=== PATIENT | female | born 1935 | race Caucasian/White ===

== ENCOUNTER 2016-06-01 22:30 | Emergency (ER) | payer BC, OTHER ==
[~2016-06-01] VITALS: Ht 157.5 cm; Wt 55.1 kg
[~2016-06-01 22:30] MED LIST: ACET325T96 PO; AMOX1TAB43 PO; ASPEC81 PO; ATOR-26 PO; FLV1 PO; LEVE500T PO; LEVO125T72 PO; MRLP17X PO; MULT-188 PO; PANT40TA PO; SERT100T PO; SNK PO; THM100 PO; TPRSR50 PO; TRAZ100T29 PO; XNX25X PO
[2016-06-01 22:40] VITALS: TEMP 37.2; Ht 157.5 cm; Wt 55.1 kg
[2016-06-01 22:45] VITALS: O2SAT 92
[2016-06-01] MEDS ORDERED: TPRSR/25 PO (23:08)
[2016-06-01] MEDS ORDERED: ASPI81TA28 PO (23:10)
--- NOTE | 2016-06-01 23:58 | EMERGENCY ROOM VISIT NOTE ---
History Report prepared by Piotr: Dena Marlow Under the Supervision of: Dr. Rosie Del Rio D.O. 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 The patient states that she was going into the bathroom and fell into her bathtub. She states she did not lose consciousness and was able to get up on her own. She states that she was able then to go back to bed. She states she called her family and told them about her fall. The patient states that she had 2 shots this evening around 5 pm because she states she has not slept for the last 2 days and wanted to get some sleep tonight. The patient's family states the patient has had alcohol withdrawal seizures with the last one occurring about 1 week ago. The patient denies having a seizure tonight but the family states that she could have had a seizure and just was unaware of it. The family states the patient drinks alcohol every day and woke up yesterday and drank a pint of whiskey. The patient states that she does have back pain that is worse with movement due to the fall. The family states the patient lives alone with caretakers that come to her house daily. The family states the patient was complaining of a headache prior to arriving at the ED tonight. They state the patient has had seizures and falls in the past resulting in broken hip, femur, shoulders, and elbows. They state that the patient suffers from depression, anxiety attacks hypertension, and macular degeneration. Source of History: patient, family Onset: few hours POULTRY TRIMMER Position: other (global) Timing: other (sudden) Associated Symptoms: + back pain, + headache, No LOC Review of Systems See HPI for pertinent positives & negatives. A total of 10 systems reviewed and were otherwise negative. 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 Social History Smoking Status: Former Smoker Alcohol Use: heavy Drug Use: none Marital Status: Housing Status: lives alone Current/Historical Medications Scheduled Alprazolam (Alprazolam), 0.25 MG PO BID Aspirin (Aspirin Ec), 81 MG PO DAILY Atorvastatin (Lipitor), 1 TAB PO DAILY Levothyroxine Sodium (Synthroid), 125 MCG PO QAM Metoprolol Succinate (Metoprolol Succinate ER), 25 MG PO BID Pantoprazole (Protonix), 40 MG PO DAILY Sertraline Hcl (Zoloft), 100 MG PO HS Trazodone Hcl (Trazodone), 150 MG PO HS Allergies Coded Allergies: No Known Allergies (Unverified , 06/01/16) Physical Exam Vital Signs Date Time Temp Pulse Resp B/P Pulse Ox O2 Delivery O2 Flow Rate FiO2 06/02/16 01:40 81 16 159/79 95 06/02/16 00:00 71 20 166/89 94 Room Air 06/01/16 22:47 68 06/01/16 22:45 92 Room Air 06/01/16 22:40 37.2 70 20 145/81 92 Room Air Physical Exam General:Smells of alcohol. HEENT: Head - Large contusion about the right eye. Pupils are equal, round, and reactive to light. Extraocular eye muscles are intact and sclera are anicteric. Ears - bilaterally patent canals with no evidence of hemotympanum. Nose - moist nasal mucosa without evidence of trauma or discharge. Mouth - moist buccal mucosa with no trauma to the teeth or signs of malocclusion. Neck: The neck is supple and there is no pain to palpation over the posterior cervical spine and no obvious step-offs or deformities. There is no JVD or tracheal deviation. Chest: There are no signs of deformities, contusions or abrasions to the chest wall. There is no obvious crepitus or paradoxical chest rise. Heart: Regular, rate, and rhythm. There is a normal S1 and S2 with no murmurs, clicks, or gallops appreciated. Lungs: Clear to auscultation bilaterally with no wheezes, rales, or rhonchi. Abdomen: Soft, completely nontender, nondistended, with good bowel sounds. There is no sign of trauma such as contusions, abrasions or penetrations. There are no palpable pulsatile masses or hepatosplenomegaly. There is no guarding, rigidity, or rebound noted. Pelvis: Stable to rock and compression. Extremities: Contusions to both knees, skin tear on right dorsal wrist. There are easily palpable peripheral pulses. Neuro: The patient is awake and alert and easily able to follow commands. Muscle strength is 5 out of 5 in all 4 extremities. Otherwise, neuro exam is unremarkable. Back: The entire thoracic, lumbar, and sacral spine were palpated. There are no obvious step-offs or deformities noted. There are no obvious signs of trauma such as contusions abrasions penetrations noted to the back. Medical Decision & Procedures ER Provider Diagnostic Interpretation: CT results as stated below per my review and radiologist interpretation: Preliminary Results Only---See Final Report for Complete Findings. CT HEAD: Comparison CT head 01/28/16 No acute intracranial abnormality No ICH, mass effect or edema, No skull fracture. Mild frontal and left occipital scalp swelling Cortical atrophy and white matter changes most consistent with chronic small vessel disease. Radiologist: Anthony graham MD Study ready at 0033 and initial results transmitted at 0050. Laboratory Results 06/01/16 23:59 06/01/16 23:59 Test 06/01/16 23:59 Red Blood Count 3.74 M/uL (4.2-5.4) Mean Corpuscular Volume 97.3 fL (80-100) Mean Corpuscular Hemoglobin 33.4 pg (25-34) Mean Corpuscular Hemoglobin Concent 34.3 g/dl (32-36) RDW Standard Deviation 47.7 fL (36.4-46.3) RDW Coefficient of Variation 13.4 % (11.5-14.5) Mean Platelet Volume 9.3 fL (7.4-10.4) Prothrombin Time 10.2 SECONDS (9.0-12.0) Prothromb Time International Ratio 1.0 (0.9-1.1) Activated Partial Thromboplast Time 26.2 SECONDS (21.0-31.0) Partial Thromboplastin Ratio 1.0 Anion Gap 12.0 mmol/L (3-11) Est Creatinine Clear Calc Drug Dose 32.3 ml/min Estimated GFR () 54.9 Estimated GFR (Non- 47.4 BUN/Creatinine Ratio 21.4 (10-20) Calcium Level 8.4 mg/dl (8.5-10.1) Total Bilirubin 0.2 mg/dl (0.2-1) Direct Bilirubin < 0.1 mg/dl (0-0.2) Aspartate Amino Transf (AST/SGOT) 36 U/L (15-37) Alanine Aminotransferase (ALT/SGPT) 31 U/L (12-78) Alkaline Phosphatase 94 U/L (45-117) Total Creatine Kinase 183 U/L (26-192) Creatine Kinase MB 8.4 ng/ml (0.5-3.6) Creatine Kinase MB Ratio 4.6 (0-3.0) Troponin I < 0.015 ng/ml (0-0.045) Total Protein 6.9 gm/dl (6.4-8.2) Albumin 3.5 gm/dl (3.4-5.0) Thyroid Stimulating Hormone (TSH) 0.238 uIu/ml (0.300-4.500) Ethyl Alcohol mg/dL 120.0 mg/dl (0-3) Laboratory results per my review. ECG Indication: other (fall) Rate (beats per minute): 65 Rhythm: normal sinus Findings: PAC, no acute ischemic change ED Course 2332: Past medical records reviewed. The patient was evaluated in room A11B. A complete history and physical exam was performed. Laboratory studies were drawn as above. The patient will go for CT scan of the head. 0120: I reevaluated the patient and she was hemodynamically stable. She is just very anxious to go home. I discussed findings and results with patient and family. She verbalized agreement of the treatment plan. The patient was discharged home. Medical Decision The patient is a 80 year old female who presents to the ED with fall. Differential diagnosis includes but is not limited to alcohol intoxication, alcohol withdrawal, closed head injury, skull fracture, intracranial trauma. Labs: ETOH 120 Stable H&H White count 12.4 BUN 24 Creatinine 1.1 Glucose 76 LFT normal TSH low at 0.23 Cardiac enzymes are negative Coagulation studies are normal. This is an 80-year-old female patient with a history of alcoholism who presents to the emergency department with her family after suffering a fall at home. At this time, the patient has no complaints of pain. However, the patient has contusions on the right side of her head and all about her knees. There is moderate erythema associated with these contusions and may indicate that the patient laid in that position for some time. She was able get herself up and called her family. I spent a great of time talking to the patient and the family about my concerns for her safety. The patient's family seems to understand the dangers associated with alcohol abuse in the elderly and the potential for falls, head injuries, and hip fractures. That the patient had [id number] care previously but other family members did not think that was necessary. I recommended reinstituting that plan again. I encouraged the patient to avoid such excessive alcohol use in the future and to move slowly with assistance to prevent falls. Impression Primary Impression: Closed head injury Additional Impressions: Alcohol intoxication Fall Scribe Attestation The scribe's documentation has been prepared under my direction and personally reviewed by me in its entirety. I confirm that the note above accurately reflects all work, treatment, procedures, and medical decision making performed by me. Departure Information Dispostion Home / Self-Care Referrals Thong Sahh III, M.D. (PCP) Forms HOME CARE DOCUMENTATION FORM, IMPORTANT VISIT INFORMATION Patient Instructions My [facility] Additional Instructions Avoid such excessive alcohol use Move slowly. Use assistance to avoid falls and trauma I believe someone should be in your home to help keep you safe Problem Qualifiers
[2016-06-02 00:12] LABS: HEMATOCRIT 36.4 % (37-47); MEAN CELL VOLUME 97.3 fL (80-100); MEAN CORPUSCULAR HEMOGLOBIN 33.4 pg (25-34); MEAN CORPUSCULAR HGB CONC 34.3 g/dl (32-36); MEAN PLATELET VOLUME 9.3 fL (7.4-10.4); PLATELET COUNT 240 K/uL (130-400); RED BLOOD COUNT 3.74 M/uL (4.2-5.4)
[2016-06-02 00:36] LABS: PROTHROMBIN TIME (PATIENT) 10.2 SECONDS (9.0-12.0)
[2016-06-02 00:39] LABS: ALKALINE PHOSPHATASE 94 U/L (45-117); ALT/SGPT 31 U/L (12-78); AST/SGOT 36 U/L (15-37); BLOOD UREA NITROGEN 24 mg/dl (7-18); BUN/CREATININE RATIO 21.4 (10-20); CALCIUM 8.4 mg/dl (8.5-10.1); CARBON DIOXIDE 22 mmol/L (21-32); CHLORIDE 107 mmol/L (98-107); GLUCOSE 76 mg/dl (70-99); POTASSIUM 3.8 mmol/L (3.5-5.1); SODIUM 141 mmol/L (136-145)
[2016-06-02 00:50] LABS: CKMB/CK RATIO 4.6 (0-3.0); THYROID STIMULATING HORMONE 0.238 uIu/ml (0.300-4.500)
[2016-06-02 01:40] VITALS: BP 159/79; PULSE 81; O2SAT 95
--- NOTE | 2016-06-02 07:12 | DIAGNOSTIC IMAGING REPORT ---
HEAD CT NONCONTRAST CT DOSE: 614.27 mGy.cm HISTORY: Fall. Head injury. eval for head tauma TECHNIQUE: Multiaxial CT images of the head were performed without the use of intravenous contrast. Automated exposure control was utilized for this study. Comparison: Head CT 01/28/2016. Findings: The paranasal sinuses and mastoid air cells are clear. The calvarium and skull base are intact. There is no mass, hematoma, midline shift, acute infarct. White matter hypodensity is nonspecific but suggestive of moderate microvascular ischemic change. The ventricles and sulci demonstrate mild age-related involutional changes. Mild left occipital and right frontal scalp swelling. Impression: No acute intracranial abnormality. Atrophy and microvascular ischemic changes. Mild scalp swelling Electronically signed by: Vince Steen M.D. 06/02/2016 7:11 AM Dictated Date/Time: 06/02/2016 7:08 AM
== END 2016-06-02 01:41 | disposition home or self-care (01) ==
LOC: EDBD 22:30 → C.EDA 22:31
DX: S09.90XA Unspecified injury of head, initial encounter (principal); W19.XXXA Unspecified fall, initial encounter; Y92.012 Bathroom of single-family (private) house as the place of occurrence of the external cause; S80.01XA Contusion of right knee, initial encounter; S80.02XA Contusion of left knee, initial encounter; F10.129 Alcohol abuse with intoxication, unspecified; F41.9 Anxiety disorder, unspecified; I25.10 Atherosclerotic heart disease of native coronary artery without angina pectoris; N18.3 Chronic kidney disease, stage 3 (moderate); F32.9 Major depressive disorder, single episode, unspecified; I12.9 Hypertensive chronic kidney disease with stage 1 through stage 4 chronic kidney disease, or unspecified chronic kidney disease; M19.90 Unspecified osteoarthritis, unspecified site; E78.5 Hyperlipidemia, unspecified; H35.30 Unspecified macular degeneration; E03.9 Hypothyroidism, unspecified; Z87.891 Personal history of nicotine dependence; Z79.82 Long term (current) use of aspirin; Z79.899 Other long term (current) drug therapy

== ENCOUNTER 2016-06-30 07:47 | Emergency (ER) | payer BC ==
[~2016-06-30] VITALS: Ht 157.5 cm; Wt 51.5 kg
[~2016-06-30 07:47] MED LIST changes: -ACET325T96 PO; -AMOX1TAB43 PO; -ASPEC81 PO; +ASPI81TA28 PO; -FLV1 PO; -LEVE500T PO; -MRLP17X PO; -MULT-188 PO; -SNK PO; -THM100 PO; +TPRSR/25 PO; -TPRSR50 PO
[2016-06-30 07:50] VITALS: TEMP 36.7; Ht 157.5 cm; Wt 51.5 kg
[2016-06-30] MEDS ORDERED: OXYCODONE/ACETAMINOPHEN 5-325 TAB PO STA (07:55)
[2016-06-30] MEDS ORDERED: CALC1TAB3 PO (08:33)
[2016-06-30] MEDS ORDERED: ATOR-26 PO (08:33)
[2016-06-30] MEDS ORDERED: THIA50TA3 PO (08:33)
[2016-06-30] MEDS ORDERED: MULT-506 PO (08:33)
[2016-06-30] MEDS ORDERED: SENN-65 PO (08:33)
--- NOTE | 2016-06-30 08:39 | DIAGNOSTIC IMAGING REPORT ---
CT LUMBAR SPINE WITHOUT CT DOSE: 254.67 mGycm CLINICAL HISTORY: Low back pain status post trauma. Seizure. TECHNIQUE: Helical images were acquired in transverse plane. Reformatted sagittal and coronal images were reviewed. CONTRAST: No contrast was administered COMPARISON STUDY: None. FINDINGS: There is a T12 burst fracture. There is is 4 mm of retropulsion. The vertebral body has lost approximately 65% of its height. This fracture is felt to be acute. There is an L1 burst fracture demonstrating 4 mm of retropulsion. The vertebral body is lost approximately 65% of its height. This fracture may be chronic. L1-2 level: There is a circumferential disc bulge. There is mild spinal canal narrowing. There is no significant foraminal stenosis L2-3 level: There is a circumferential disc bulge with mild spinal stenosis. There is no significant foraminal narrowing L3-4 level: There is a circumferential disc bulge with mild spinal stenosis. There is no significant foraminal narrowing L4-5 level: There is a circumferential disc bulge with mild spinal stenosis. There is no significant foraminal narrowing L5-S1 level: There is a circumferential disc bulge. There is no significant spinal or foraminal stenosis. Healing insufficiency fractures of the right sacral horacio are visualized. IMPRESSION: 1. Acute T12 burst fracture with 4 mm of retropulsion 2. Chronic L1 burst fracture with 4 mm of retropulsion 3. Healing right sacral insufficiency fractures 4. Mild multilevel degenerative changes with multilevel disc bulges and mild multilevel spinal stenosis Electronically signed by: Davion Murillo M.D. 06/30/2016 8:38 AM Dictated Date/Time: 06/30/2016 8:33 AM
[2016-06-30] MEDS ORDERED: OXYC-57 PO (09:33)
--- NOTE | 2016-06-30 09:38 | EMERGENCY ROOM VISIT NOTE ---
History Report prepared by Piotr: Dez Brooks Under the Supervision of: Dr. Tico Hobson D.O. First contact with patient: 07:52 Chief Complaint: BACK PAIN Stated Complaint: BACK PAIN History of Present Illness The patient is an 80 year old female who presents to the Emergency Room with complaints of worsening back pain that started over the past few weeks. The patient says that she had a seizure a while ago and fell, hurting her back. She is not sure how long ago the seizure occurred, but she says that the pain has been worsening recently. The patient states that her whole back hurts, but her lower back hurts the most. She says that the pain is so bad that she is unable to sit up. Movement worsens the pain. The patient notes that she has seen other doctors for the pain, but they would not give her any medications for the pain because she did not "break anything". Source of History: patient Onset: Over past few weeks Position: back Timing: worsening Modifying Factors (Worsening): movement Note: Associated symptoms: Seizure a few weeks ago and fell. Unable to sit up due to pain. Review of Systems See HPI for pertinent positives & negatives. A total of 10 systems reviewed and were otherwise negative. 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 Social History Smoking Status: Former Smoker Alcohol Use: heavy Drug Use: none Marital Status: Housing Status: lives alone Current/Historical Medications Scheduled Aspirin (Aspirin Ec), 81 MG PO DAILY Atorvastatin (Lipitor), 80 MG PO DAILY Calcium Carbonate-Vitamin D (Super Calcium 600+D 400), 1 TAB PO BID Levothyroxine Sodium (Synthroid), 125 MCG PO QAM Metoprolol Succinate (Metoprolol Succinate ER), 25 MG PO BID Multivitamin (Multivitamin), 1 TAB PO Q2D Pantoprazole (Protonix), 40 MG PO DAILY Senna/Docusate Sod (Senokot S), 1 TAB PO BID Sertraline Hcl (Zoloft), 100 MG PO HS Thiamine Hcl (Vitamin B-1), 50 MG PO DAILY Trazodone Hcl (Trazodone), 150 MG PO HS Scheduled PRN Oxycodone/Acetaminophen 5MG/325MG (Percocet 5MG/325MG), 1 TAB PO Q6H PRN for Pain Allergies Coded Allergies: No Known Allergies (Unverified , 06/30/16) Physical Exam Vital Signs Date Time Temp Pulse Resp B/P Pulse Ox O2 Delivery O2 Flow Rate FiO2 06/30/16 10:11 65 16 153/73 94 06/30/16 09:28 61 18 153/86 96 Room Air 06/30/16 07:50 36.7 65 18 151/88 95 Room Air Physical Exam CONSTITUTIONAL/VITAL SIGNS: Reviewed / noted above. GENERAL: Non-toxic in appearance. INTEGUMENTARY: Warm, dry, and [place]. HEAD: Normocephalic. EYES: without scleral icterus or trauma. ENT/OROPHARYNX: clear and moist. LYMPHADENOPATHY/NECK: Is supple without lymphadenopathy or meningismus. RESPIRATORY: Lungs clear and equal. CARDIOVASCULAR: Regular rate and rhythm. GI/ABDOMEN: Soft and nontender. No organomegaly or pulsatile mass. No rebound or guarding. Normal bowel sounds. EXTREMITIES: Warm and well perfused. BACK: Tenderness to palpation of the lumbar spine. NEUROLOGICAL: Intact without focal deficits. PSYCHIATRIC: normal affect. MUSCULOSKELETAL: Normally developed with good muscle tone. Medical Decision & Procedures ER Provider Diagnostic Interpretation: CT results as stated below per my review and radiologist interpretation: CT LUMBAR SPINE WITHOUT CT DOSE: 254.67 mGycm CLINICAL HISTORY: Low back pain status post trauma. Seizure. TECHNIQUE: Helical images were acquired in transverse plane. Reformatted sagittal and coronal images were reviewed. CONTRAST: No contrast was administered COMPARISON STUDY: None. FINDINGS: There is a T12 burst fracture. There is is 4 mm of retropulsion. The vertebral body has lost approximately 65% of its height. This fracture is felt to be acute. There is an L1 burst fracture demonstrating 4 mm of retropulsion. The vertebral body is lost approximately 65% of its height. This fracture may be chronic. L1-2 level: There is a circumferential disc bulge. There is mild spinal canal narrowing. There is no significant foraminal stenosis L2-3 level: There is a circumferential disc bulge with mild spinal stenosis. There is no significant foraminal narrowing L3-4 level: There is a circumferential disc bulge with mild spinal stenosis. There is no significant foraminal narrowing L4-5 level: There is a circumferential disc bulge with mild spinal stenosis. There is no significant foraminal narrowing L5-S1 level: There is a circumferential disc bulge. There is no significant spinal or foraminal stenosis. Healing insufficiency fractures of the right sacral horacio are visualized. IMPRESSION: 1. Acute T12 burst fracture with 4 mm of retropulsion 2. Chronic L1 burst fracture with 4 mm of retropulsion 3. Healing right sacral insufficiency fractures 4. Mild multilevel degenerative changes with multilevel disc bulges and mild multilevel spinal stenosis Electronically signed by: Davion Murillo M.D. 06/30/2016 8:38 AM Dictated Date/Time: 06/30/2016 8:33 AM Medications Administered Medications (Trade) Dose Ordered Sig/Evonne Route Start Time Stop Time Status Last Admin Dose Admin Oxycodone/ Acetaminophen (Percocet 5-325mg Tab) 1 tab NOW STAT PO 06/30/16 07:55 06/30/16 07:57 DC 06/30/16 08:14 1 TAB ED Course 0754: Previous medical records were reviewed. The patient was evaluated in room A10. A complete history and physical examination was performed. 0755: Ordered Percocet 5-325mg Tab 1 tab PO. 0955: On reevaluation, the patient is resting comfortably. I discussed the results and findings with the patient. She verbalized agreement of the treatment plan. She will be discharged home. Medical Decision Differential considered includes cauda equina syndrome, conus medullaris, spinal cord compression syndrome, peripheral nerve compression, fractures or subluxations, intra-abdominal pathology such as abdominal aortic aneurysm or kidney stones, muscle strain, transverse myelitis, spinal cord injury. This is an 80-year-old female who presents to the ED with a chief complaint of back pain. The pain is in the lower back. She states that she fell about a month ago. She has had the pain since then. It seems to slightly worsened recently. The patient has no other specific complaints. Denies any perianal anesthesia or trouble with her bowels or bladder. She denies any weakness or numbness in the lower extremities. The patient has some tenderness on exam of the lumbar region. CT scan of the spine reveals an acute T12 burst fracture with 4 mm retropulsion. There is also a chronic L1 burst fracture with 4 mm of retropulsion. The patient was told the results of the test per she is given a Percocet by mouth. This helped her pain. She was discharged on Percocet. She was given a referral to orthopedics. She will use her walker. Impression Primary Impression: T12 burst fracture Scribe Attestation The scribe's documentation has been prepared under my direction and personally reviewed by me in its entirety. I confirm that the note above accurately reflects all work, treatment, procedures, and medical decision making performed by me. Departure Information Dispostion Home / Self-Care Prescriptions Oxycodone/Acetaminophen 5MG/325MG (PERCOCET 5MG/325MG) Tab 1 TAB PO Q6H Y for Pain, #20 TAB Prov: Tico Hobson D.O. 06/30/16 Referrals Thong Shah III, M.D. (PCP) Patient Instructions ED Fx Comp Vertebral, My [facility] Additional Instructions Percocet as prescribed. No driving within 6 hours of use. Do not take additional Tylenol while taking Percocet. Follow-up with your doctor for further care and evaluation in 1-2 days. Return to the emergency department for worsening or new symptoms or any concerns. You have been examined and treated today on an emergency basis only. This is not a substitute for, or an effort to provide, complete comprehensive medical care. It is impossible to recognize and treat all injuries or illnesses in a single emergency department visit. It is therefore important that you follow up closely with your doctor. Call as soon as possible for an appointment.
[2016-06-30 10:11] VITALS: BP 153/73; PULSE 65; O2SAT 94
== END 2016-06-30 10:38 | disposition home or self-care (01) ==
LOC: EDBD 07:47 → C.EDA 07:48
DX: S22.081A Stable burst fracture of T11-T12 vertebra, initial encounter for closed fracture (principal); I25.10 Atherosclerotic heart disease of native coronary artery without angina pectoris; N18.3 Chronic kidney disease, stage 3 (moderate); I12.9 Hypertensive chronic kidney disease with stage 1 through stage 4 chronic kidney disease, or unspecified chronic kidney disease; E78.5 Hyperlipidemia, unspecified; E03.8 Other specified hypothyroidism; F41.9 Anxiety disorder, unspecified; F32.9 Major depressive disorder, single episode, unspecified; Z79.82 Long term (current) use of aspirin; Z79.899 Other long term (current) drug therapy; Z86.018 Personal history of other benign neoplasm; Z87.828 Personal history of other (healed) physical injury and trauma; Z87.891 Personal history of nicotine dependence; Z95.5 Presence of coronary angioplasty implant and graft; W19.XXXA Unspecified fall, initial encounter

== ENCOUNTER 2016-09-30 13:19 | Emergency (ER) | payer BC ==
[~2016-09-30] VITALS: Ht 157.5 cm; Wt 53.5 kg
[~2016-09-30 13:19] MED LIST changes: +CALC1TAB3 PO; +MULT-506 PO; +OXYC-57 PO; +SENN-65 PO; +THIA50TA3 PO; -XNX25X PO
[2016-09-30 13:26] VITALS: TEMP 36.7; Ht 157.5 cm; Wt 53.5 kg
--- NOTE | 2016-09-30 13:58 | EMERGENCY ROOM VISIT NOTE ---
History Report prepared by Piotr: Sachin Hale Under the Supervision of: Dr. Aron Christianson M.D. First contact with patient: 13:31 Chief Complaint: FALL Stated Complaint: FALL History of Present Illness The patient is an 80 year old female who presents to the Emergency Room with complaints of a sudden fall occurring this morning. The patient states that she was drinking 4-5 shots of vodka this morning, and she fell. The patient states that she does not remember falling or hitting her head. The caregivers went to the store, and while they were out she drank. The patient states that she does not drink alcohol very regularly, and she is not currently in any pain. Source of History: patient Onset: this morning Position: other (global) Quality: other (fall) Timing: other (sudden) Review of Systems All systems have been listed, reviewed, and are negative other than those previously mentioned. Please see Additional Medical History Sheet. 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 Social History Smoking Status: Former Smoker Alcohol Use: heavy Drug Use: none Marital Status: Housing Status: lives alone Current/Historical Medications Scheduled Aspirin (Aspirin Ec), 81 MG PO DAILY Atorvastatin (Lipitor), 80 MG PO DAILY B-Complex Vitamins (Vitamin B Complex), 1 TAB PO DAILY Calcium Carbonate-Vitamin D (Super Calcium 600+D 400), 1 TAB PO BID Levothyroxine Sodium (Synthroid), 125 MCG PO QAM Metoprolol Succinate (Metoprolol Succinate ER), 25 MG PO BID Multivitamin (Multivitamin), 1 TAB PO Q2D Pantoprazole (Protonix), 40 MG PO DAILY Sertraline Hcl (Zoloft), 100 MG PO HS Trazodone Hcl (Trazodone), 150 MG PO HS Allergies Coded Allergies: No Known Allergies (Unverified , 06/30/16) Physical Exam Vital Signs Date Time Temp Pulse Resp B/P (MAP) Pulse Ox O2 Delivery O2 Flow Rate FiO2 09/30/16 16:43 68 18 132/76 95 Room Air 09/30/16 15:00 72 18 127/71 95 Room Air 09/30/16 14:05 95 Room Air 09/30/16 13:30 74 09/30/16 13:26 36.7 85 22 110/59 95 Room Air Physical Exam GENERAL: Appears intoxicated. Alcohol is on her breath. Responds to most questions but appears somewhat confused. Patient does not appear toxic. Patient is adequately hydrated and well-nourished. SKIN: No erythema, pallor, cyanosis or rash HEENT: Lump on the right temporal area. Bruise on the right frontal forehead. No lara sign or raccoon sign. Normal head, pupils equal, reactive to light and accommodation. Ears normal. No hemotympanum.. Oral cavity and posterior pharynx appear normal. Neck: Supple and non-tender. Without adenopathy, no neck vein distention. LUNGS: Clear to auscultation. No wheezes, no rales, no rhonchi. HEART: No murmurs. No gallops. No rubs ABDOMEN: No masses, no rebound, no hepatomegaly or splenomegaly. EXTREMITIES: 8 cm skin tear over the dorsum of the right elbow. Old bruises on both arms especially the right upper shoulder as well as the back of the right shoulder. Full range of motion in the right shoulder. Legs do not reveal significant bruising or signs of trauma. No pedal or pretibial edema. No calf or thigh tenderness. NEUROLOGIC: Cranial nerves II-XII within normal limits. No gross motor sensory function deficits. Medical Decision & Procedures ER Provider Diagnostic Interpretation: CT results are interpretations by the radiologist and per my review. HEAD WITHOUT CONTRAST (CT) CLINICAL HISTORY: 80 years-old Female presenting with fall hit right side. TECHNIQUE: Multidetector CT imaging of the head was performed without the use of intravenous contrast. IV contrast: None. A dose lowering technique was used consistent with the principles of ALARA (as low as reasonably achievable). COMPARISON: 06/02/2016. CT DOSE (mGy.cm): The estimated cumulative dose is 1119.46 mGy.cm. FINDINGS: Heavy Cleaner topogram: Unremarkable. Image quality is degraded by motion and beam hardening artifact. This somewhat limits diagnostic sensitivity of the exam. Ventricular and sulcal prominence proportional to diffuse parenchymal atrophy, likely age-related. Periventricular white matter hypoattenuation unchanged from prior, nonspecific but likely chronic small vessel ischemic change. No mass effect or midline shift. No hemorrhage or acute territorial infarct. No extra-axial fluid collection. Paranasal sinuses and mastoid air cells clear. Calvarium intact. IMPRESSION: 1. Allowing for limited image quality, no acute intracranial pathology. Electronically signed by: Sidney Sanders M.D. 09/30/2016 2:34 PM Dictated Date/Time: 09/30/2016 2:29 PM Laboratory Results 09/30/16 14:44 09/30/16 14:44 Test 09/30/16 14:44 Red Blood Count 3.37 M/uL (4.2-5.4) Mean Corpuscular Volume 103.3 fL (80-100) Mean Corpuscular Hemoglobin 32.9 pg (25-34) Mean Corpuscular Hemoglobin Concent 31.9 g/dl (32-36) RDW Standard Deviation 56.4 fL (36.4-46.3) RDW Coefficient of Variation 15.0 % (11.5-14.5) Mean Platelet Volume 9.1 fL (7.4-10.4) Prothrombin Time 10.1 SECONDS (9.0-12.0) Prothromb Time International Ratio 0.9 (0.9-1.1) Activated Partial Thromboplast Time 25.4 SECONDS (21.0-31.0) Partial Thromboplastin Ratio 1.0 Anion Gap 13.0 mmol/L (3-11) Est Creatinine Clear Calc Drug Dose 25.4 ml/min Estimated GFR () 41.0 Estimated GFR (Non- 35.4 BUN/Creatinine Ratio 22.6 (10-20) Calcium Level 8.9 mg/dl (8.5-10.1) Total Bilirubin 0.3 mg/dl (0.2-1) Aspartate Amino Transf (AST/SGOT) 214 U/L (15-37) Alanine Aminotransferase (ALT/SGPT) 81 U/L (12-78) Alkaline Phosphatase 118 U/L (45-117) Total Protein 6.3 gm/dl (6.4-8.2) Albumin 3.0 gm/dl (3.4-5.0) Globulin 3.3 gm/dl (2.5-4.0) Albumin/Globulin Ratio 0.9 (0.9-2) Ethyl Alcohol mg/dL 232.0 mg/dl (0-3) Laboratory results as stated above per my review. ECG Indication: other (fall) Rate (beats per minute): 63 Rhythm: sinus rhythm Findings: no acute ischemic change, prolonged QT, no ectopy ED Course 1331: Past medical records reviewed. The patient was evaluated in room C4. A complete history and physical examination was performed. 1550: I revaluated the patient, and she was resting comfortably. 1645: Upon reevaluation, the patient appeared to have improvement of her symptoms, and her wound was steri stripped closed. She declined an x-ray of her shoulder. I discussed today's findings with her, and I told her not to drink alcohol. She verbalized agreement of the treatment plan. She will be discharged home. Medical Decision Nurses notes reviewed. Medical history sheet reviewed. Differential diagnosis includes but is not limited to: closed head injury, alcohol intoxication, multiple bruises, shoulder fracture, dislocation, metabolic disorder. The patient is here after a fall where she struck the right side of her head. She also struck her right arm resulting in a large skin tear. Multiple imaging , labs and EKG were performed. Please see above. The patient's alcohol level was 232. CT scan does not reveal hemorrhage or significant injury in her head. The patient was strongly encouraged to avoid alcohol. I ordered an x-ray of her right shoulder with the patient refused. It is unlikely that she has a fracture or dislocation of the shoulder because she has good range of motion. She does have some bruising over that shoulder much of it which looks old. Medication Reconcilliation Current Medication List: was personally reviewed by me Blood Pressure Screening Patient's blood pressure: Normal blood pressure Impression Primary Impression: Fall Additional Impressions: Closed head injury Skin tear Multiple contusions Alcohol intoxication Hypokalemia Scribe Attestation The scribe's documentation has been prepared under my direction and personally reviewed by me in its entirety. I confirm that the note above accurately reflects all work, treatment, procedures, and medical decision making performed by me. Departure Information Dispostion Home / Self-Care Referrals Thong Shah III, M.D. (PCP) Forms HOME CARE DOCUMENTATION FORM, IMPORTANT VISIT INFORMATION Patient Instructions My [facility] Additional Instructions Leave the Steri-Strips on your arm in place for at least 10 days or until they fall off by themself. NO ALCOHOL Continue all of your current medications as prescribed. Follow-up with your family physician within the next 2 weeks. Problem Qualifiers
[2016-09-30 14:05] VITALS: O2SAT 95
[2016-09-30] MEDS ORDERED: B-COTAB18 PO (14:12)
--- NOTE | 2016-09-30 14:35 | DIAGNOSTIC IMAGING REPORT ---
HEAD WITHOUT CONTRAST (CT) CLINICAL HISTORY: 80 years-old Female presenting with fall hit right side. TECHNIQUE: Multidetector CT imaging of the head was performed without the use of intravenous contrast. IV contrast: None. A dose lowering technique was used consistent with the principles of ALARA (as low as reasonably achievable). COMPARISON: 06/02/2016. CT DOSE (mGy.cm): The estimated cumulative dose is 1119.46 mGy.cm. FINDINGS: American Studies Professor topogram: Unremarkable. Image quality is degraded by motion and beam hardening artifact. This somewhat limits diagnostic sensitivity of the exam. Ventricular and sulcal prominence proportional to diffuse parenchymal atrophy, likely age-related. Periventricular white matter hypoattenuation unchanged from prior, nonspecific but likely chronic small vessel ischemic change. No mass effect or midline shift. No hemorrhage or acute territorial infarct. No extra-axial fluid collection. Paranasal sinuses and mastoid air cells clear. Calvarium intact. IMPRESSION: 1. Allowing for limited image quality, no acute intracranial pathology. Electronically signed by: Sidney Sanders M.D. 09/30/2016 2:34 PM Dictated Date/Time: 09/30/2016 2:29 PM
[2016-09-30 15:02] LABS: HEMATOCRIT 34.8 % (37-47); MEAN CELL VOLUME 103.3 fL (80-100); MEAN CORPUSCULAR HEMOGLOBIN 32.9 pg (25-34); MEAN CORPUSCULAR HGB CONC 31.9 g/dl (32-36); MEAN PLATELET VOLUME 9.1 fL (7.4-10.4); PLATELET COUNT 286 K/uL (130-400); RED BLOOD COUNT 3.37 M/uL (4.2-5.4); WHITE BLOOD COUNT 11.67 K/uL (4.8-10.8)
[2016-09-30 15:12] LABS: INR 0.9 (0.9-1.1); PROTHROMBIN TIME (PATIENT) 10.1 SECONDS (9.0-12.0)
[2016-09-30 15:20] LABS: BUN/CREATININE RATIO 22.6 (10-20); CALCIUM 8.9 mg/dl (8.5-10.1); CREATININE 1.4 mg/dl (0.60-1.20); POTASSIUM 3.3 mmol/L (3.5-5.1)
[2016-09-30 15:23] LABS: ALB/GLOB RATIO 0.9 (0.9-2)
[2016-09-30 16:43] VITALS: BP 132/76; PULSE 68; O2SAT 95
== END 2016-09-30 16:46 | disposition home or self-care (01) ==
LOC: EDBD 13:19 → C.EDC 13:20
DX: S09.90XA Unspecified injury of head, initial encounter (principal); S00.83XA Contusion of other part of head, initial encounter; T14.8 Other injury of unspecified body region; F10.129 Alcohol abuse with intoxication, unspecified; E87.6 Hypokalemia; I25.10 Atherosclerotic heart disease of native coronary artery without angina pectoris; N18.3 Chronic kidney disease, stage 3 (moderate); I12.9 Hypertensive chronic kidney disease with stage 1 through stage 4 chronic kidney disease, or unspecified chronic kidney disease; E78.5 Hyperlipidemia, unspecified; M19.90 Unspecified osteoarthritis, unspecified site; F41.9 Anxiety disorder, unspecified; Z79.82 Long term (current) use of aspirin; Z79.899 Other long term (current) drug therapy; Z86.018 Personal history of other benign neoplasm; Z87.891 Personal history of nicotine dependence; W19.XXXA Unspecified fall, initial encounter

== ENCOUNTER 2019-10-12 07:10 | Inpatient (IN) ==
--- OUTSIDE RECORDS SUMMARY | 2019-10-12 07:12 | External Medical Summary | Continuity of Care Document ---
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 Quantity: 30 Refills: 4 Guaifenesin-Codeine 100-10 MG/5ML SYRP; TAKE 1 TEASPOONFUL EVERY 4 HOURS NEEDED. Refills: 0 Tylenol 500 MG CAPS; TAKE 2 CAPSULES 2 TIMES DAILY. Refills: 0 Lisinopril 10 MG Oral Tablet; TAKE 1 TABLET BY MOUTH EVERY D AY Quantity: 90 Refills: 3 Sertraline HCl - 100 MG Oral Tablet; TAKE (1) TABLET DAILY. Refills: 0 Trazamine 50 MG MISC; (1) AT BEDTIME WITH 150MG- TOTAL 200MG AT BEDTIME Refills: 0 ALPRAZolam 0.5 MG Oral Tablet; TAKE 1 TABLET 3 TIMES DAILY A S NEEDED. Quantity: 90 Refills: 0 Levothyroxine Sodium 175 MCG Oral Tablet; TAKE 1 TABLET DANY Y. Quantity: 30 Refills: 5 traMADol HCl - 50 MG Oral Tablet; TAKE 1 TABLET EVERY 4 TO 6 HOURS NEEDED FOR PAIN. Quantity: 90 Refills: 1 PreserVision AREDS 2 Oral Capsule; Take 1 capsule twice dany y Refills: 0 Desyrel 150 MG TABS; TAKE 1 TABLET AT BEDTIME. Refills: 0 Multi-Vitamins Oral Tablet; TAKE 1 TABLET DAILY. Refills: 0 Symbicort 160-4.5 MCG/ACT Inhalation Aer osol; INHALE 2 PUFFS TWICE DAILY. RINSE MOUTH AFTER USE. MORGAN Jimenez Start: 21-Aug-2014 Quantity: 1 10.2 GM Inhaler Refills: 5 Procedures History of Tubal Ligation Status: Comple arian Immunizations Immunizations not documented Family History Mother Family history of myocardial infarction (V17.3) (Z82.49) Sta tus: Active Father Family history of myocardial infarction (V17.3) (Z82.49) Sta tus: Active Brother Family history of myocardial infarction (V17.3) (Z82.49) Sta tus: Active Social History - Smoking Status Ex-smoker Plan of Treatment Planned Observations Planned Goals not documented Results No Known Results Results not documented Encounters Appointment; Salma Jimenez PA-C 07-Sep-2014 10:00 Encounter Diagnosis: Problem not documented
--- OUTSIDE RECORDS SUMMARY | 2019-10-12 07:12 | External Medical Summary | Continuity of Care Document ---
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 RINSE MOUTH AFTER USE. MORGAN Jimenez Start: 21-Aug-2014 Quantity: 1 10.2 GM Inhaler Refills: 5 ALPRAZolam 0.5 MG Oral Tablet; TAKE 1 TABLET 3 TIMES DAILY A S NEEDED. Quantity: 90 Refills: 0 Levothyroxine Sodium 175 MCG Oral Tablet; TAKE 1 TABLET DANY Y. Quantity: 30 Refills: 5 traMADol HCl - 50 MG Oral Tablet; TAKE 1 TABLET EVERY 4 TO 6 HOURS NEEDED FOR PAIN. Quantity: 90 Refills: 1 Desyrel 150 MG TABS; TAKE 1 TABLET AT BEDTIME. Refills: 0 Multi-Vitamins Oral Tablet; TAKE 1 TABLET DAILY. Refills: 0 Lisinopril 10 MG Oral Tablet; TAKE 1 TABLET BY MOUTH EVERY D AY Quantity: 90 Refills: 3 Sertraline HCl - 100 MG Oral Tablet; TAKE (1) TABLET DAILY. Refills: 0 Trazamine 50 MG MISC; (1) AT BEDTIME WITH 150MG- TOTAL 200MG AT BEDTIME Refills: 0 PreserVision AREDS 2 Oral Capsule; Take 1 capsule twice dany y Refills: 0 Protonix 40 MG Oral Tablet Delayed Release; TAKE 1 TABLET DA URI. Quantity: 30 Refills: 4 Guaifenesin-Codeine 100-10 MG/5ML SYRP; TAKE 1 TEASPOONFUL EVERY 4 HOURS NEEDED. Refills: 0 Tylenol 500 MG CAPS; TAKE 2 CAPSULES 2 TIMES DAILY. Refills: 0 Procedures History of Tubal Ligation Status: Comple [...]
--- NOTE | 2019-10-12 07:44 | Emergency Department Note ---
Impression & Plan Community acquired pneumonia, SOB (shortness of breath), Lab test negative for COVID-19 virus ED Provider Note CHIEF COMPLAINT: Cough and shortness of breath HISTORY OF PRESENTING ILLNESS: This is an 83-year-old female who presents to the emergency department by private vehicle with her caregiver with complaint of cough and difficulty breathing for the past 2 to 3 days. Patient's caregiver provides most of the history and states that they called the PCP to try to make an appointment, and they stated that they could not come in until she had been tested for COVID. The caregiver notes that the patient never goes anywhere and has not had any visitors and she feels that her risk for COVID is extremely low. She is a former smoker and has had bronchitis and pneumonia in the past, she is concerned that something is developing and wanted to have her checked for this. The patient denies any chest pain, abdominal pain, nausea or vomiting. She denies any shortness of breath at rest, but caregiver states that she has been getting much more out of breath with normal activities than usual. She does not use any oxygen at home. She has not had any fevers or chills. She denies any l oss of taste or smell. She denies any pain and rates her pain level is 0/10. Caregiver has not noticed any swelling in the legs. She does have a history of CAD and stent placement 4 years ago. Caregiver denies history of congestive heart failure. REVIEW OF SYSTEMS: A complete 10 point review of systems was reviewed with the patient with pertinent positives and negatives as per history of present illness. All else were negative. PAST MEDICAL HISTORY: CAD, s/p stent in 2016, hypertension, stage III chronic kidney disease, anxiety, depression, history of alcohol abuse, hypothyroidism, history of tubal ligation SOCIAL HISTORY: Lives at home with a caregiver, she is a former smoker ALLERGIES: No known allergies PHYSICAL EXAM: CONSTITUTIONAL: Pleasant and cooperative. Nontoxic-appearing and in no acute distress. Well appearing and well nourished. HEENT: Normocephalic, atraumatic. PERRL, EOMI. Pharynx normal. NECK: Supple, full active range of motion without discomfort. No cervical adenopathy. RESPIRATORY: Slightly diminished in the bases bilaterally, otherwise clear to auscultation bilaterally with no wheezing, crackles, rhonchi or stridor. Nonlabored breathing, no tachypnea or accessory muscle use. Equal expansion bilaterally. CARDIOVASCULAR: Regular rate and rhythm with no murmurs, rubs or gallops. Normal peripheral perfusion, 2+ distal pulses in all 4 extremities. No pitting edema. GASTROINTESTINAL: Soft, nontender, nondistended. No palpable masses or HSM. Santos l sounds present in all quadrants. MUSCULOSKELETAL: Full range of motion of all joints without discomfort. No tenderness or swelling in the calves. Negative Homans sign bilaterally. INTEGUMENTARY: No rash or other significant dermatologic conditions noted. NEUROLOGIC: Alert and oriented X 4 with normal affect. Normal strength and sensation in all 4 extremities. Normal speech. ED COURSE AND MEDICAL DECISION MAKING: CC: Patient presenting with complaint of cough and shortness of breath DIFFERENTIAL DIAGNOSIS: Includes, but not limited to viral URI, bronchitis, pneumonia, pneumothorax, CHF, COPD, acute coronary syndrome, PE, COVID-19, among others. INTERPRETATION OF LABS: Mild leukocytosis with left shift, no anemia, normal platelets, no significant electrolyte abnormalities, normal renal function, liver enzymes. Coagulation factors within normal limits. Troponin undetectable. Pro-BNP within normal limits. IMAGING: XR chest 1V portable CLINICAL HISTORY: Dyspnea, cough COMPARISON STUDY: 01/28/2016 FINDINGS: Mild stable cardiomegaly. Fixed subtle hernia. Minimal interstitial infiltrate left lung base. Lungs otherwise appear clear. Deformity right humeral head and neck consistent with old trauma. Several old left-sided rib fractures. IMPRESSION: 1. Minimal interstitial infiltrate left base. Mild stable cardiomegaly. Chronic changes as noted. EKG: Shows normal sinus rhythm with a rate of 66 bpm, normal intervals, no ectopy, no ST elevation or depression, T wave inversions noted in the anterior leads which appears to be new when compared to previous EKG from 09/30/2016 by my interpretation. MEDICATION RECONCILIATION: I attest that I have personally reviewed the patient's current medication list. INITIAL VITAL SIGNS REVIEW: I reviewed the patient's initial vital signs and interpret them as follows: T: Afebrile; BP: Hypertensive; HR: Within normal limits; RR: Within normal limits; Pulse Ox: Within normal limits on room air. Blood pressure screening: The patient was found to have an elevated blood pressure and was referred to the inpatient team for further management. MDM SUMMARY: Patient was evaluated at bedside, history and physical exam performed. Patient is alert and oriented, in no acute distress, resting calmly in stretcher. Afebrile and nontoxic-appearing. She does not appear to be significantly dehydrated. Lungs are slightly diminished in the bases, but otherwise clear. No respiratory distress noted on exam. No tachypnea or hypoxia. On room air. Cardiac monitoring: An order was placed for continuous cardiac monitoring. The monitor shows a rate of 78 bpm with normal sinus rhythm. I discussed at length with the patient and her caregiver, I feel the risk of COVID-19 is extremely low. The patient denies any chest pain, I am less concerned for ACS or PE I feel this is more likely infectious given the congested cough. Orders were placed at bedside for labs including troponin and pro-BNP, EKG, chest x-ray to evaluate for shortness of breath. Patient discussed with Dr. Coelho, who also evaluated the patient and agrees with my assessment, plan, and disposition. Labs and imaging reviewed as above, labs notable for mild leukocytosis with left shift, otherwise unremarkable. Negative troponin. No evidence on labs or x-ray for CHF exacerbation. Chest x-ray does show a left base infiltrate concerning for pneumonia, especially in the setting of cough and leukocytosis. EKG reviewed and does note some T wave inversions in the anterior leads that appears to be a change when compared to previous EKG. The patient continues to deny any chest pain and her troponin is negative. She does have history of CAD, I feel that this could be a sign of demand ischemia. I spoke on the phone with Verenice Fields PA-C with the hospitalist service, who agrees to evaluate the patient for admission. Rapid COVID-19 t esting was performed per the hospitalist team request, this was reviewed and is NEGATIVE. Patient reassessed multiple times throughout ED stay, she has remained hemodynamically stable and afebrile, she is breathing comfortably while resting in the stretcher, and she remains on room air with reasonable oxygen saturation. The patient and her caregiver were updated on all results and plan for admissi on, they were comfortable with this plan. The patient was stable at time of admission. The chart was completed utilizing [employer] voice recognition software. Grammatical errors, random word insertions, pronoun errors, and incomplete sentences are an occasional consequence of this system due to software limitations, ambient noise, and hardware issues. Any formal questions or concerns about the content, text, or information contained within the body of this dictation should be directly addressed to the nurse practitioner for clarification. 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 tissue 11/21/09- polyps all small TVA 09/10/2011- adenomatous polyps" CAD (coronary artery disease) CKD (chronic kidney disease), stage III Depression GERD (gastroesophageal reflux disease) Hip fracture, right "s/p ORIF" HTN (hypertension) Macular degeneration Secondary hypothyroidism (09/25/11) Surgical History H/O colonoscopy H/O hemorrhoidectomy H/O tubal ligation S/P angioplasty with stent "10/26/2014- BMS to 1st diagonal" Family History Other Coronary heart disease Social History (Updated 10/12/19 @ 13:38 by Crystal Fields PA-C) Smoking Status: Former smoker Second Hand Exposure: No; Do You Dip or Chew Tobacco: No; Tobacco Cessation Education Requested by Patient: No Hx Alcohol Use: Yes Alcohol type: hard liquor Hx Substance Use: No Preferred Language: Luxembourger Communication Ability: Effective Pulp Press Tender Required: No Beliefs That Will Affect Care: None Current Living Situation: Other Current Living Situation Comment: home with 24 hour caregivers Other Information That Helps Us Care for You: No Feels Safe at Home: Yes Safety Concerns: Feels Safe At This Time Allergies Allergies Allergy/AdvReac Type Severity Reaction Status Date / Time No Known Allergies Allergy Unverified 10/12/19 08:28 Home Meds Home Medications Medication Instructions Recorded Confirmed aspirin [Aspir-81] 81 mg PO DAILY 10/12/19 10/12/19 atorvastatin 80 mg PO HS 10/12/19 10/12/19 folic acid 0.4 mg PO DAILY 10/12/19 10/12/19 levothyroxine 125 mcg PO DAILYBB 10/12/19 10/12/19 metoprolol succinate 25 mg PO BID 10/12/19 10/12/19 multivitamin [Multiple Vitamin] 1 tab PO DAILY 10/12/19 10/12/19 pantoprazole 40 mg PO DAILY 10/12/19 10/12/19 psyllium husk [Metamucil] 0.4 g PO DAILY 10/12/19 10/12/19 pyridoxine (vitamin B6) [Vitamin 100 mg PO DAILY 10/12/19 10/12/19 B-6] sertraline 50 mg PO HS 10/12/19 10/12/19 trazodone 150 mg PO HS 10/12/19 10/12/19 Results & Data (ED) Vital Signs Vital Signs - 24 hr 10/12/19 07:10 10/12/19 07:17 10/12/19 07:39 Temperature 36.4 C L Temperature Source Oral Pulse Rate 80 Pulse Rate from SpO2 Sensor Respiratory Rate 20 Respiratory Effort / Characteristics Non-Labored SOB on Exertion Respiratory Depth Normal Respiratory Pattern Regular Blood Pressure 148/93 H Blood Pressure Mean 111 Pulse Oximetry 92 92 92 Oxygen Delivery Method Room Air Room Air Room Air Sepsis Recent Fever Within 48 Hours No Sepsis New/Unexplained Change in Mental Status N/A Sepsis Action Taken by Nursing No Action Required 10/12/19 07:45 10/12/19 08:00 10/12/19 08:30 Temperature Temperature Source Pulse Rate 68 68 67 Pulse Rate from SpO2 Sensor 68 66 67 Respiratory Rate 17 19 27 H Respiratory Effort / Characteristics Respiratory Depth Respiratory Pattern Blood Pressure Blood Pressure Mean Pulse Oximetry 93 92 92 Oxygen Delivery Method Sepsis Recent Fever Within 48 Hours Sepsis New/Unexplained Change in Mental Status Sepsis Action Taken by Nursing 10/12/19 08:50 10/12/19 09:00 10/12/19 09:30 Temperature Temperature Source Pulse Rate 66 64 65 Pulse Rate from SpO2 Sensor 67 64 66 Respiratory Rate 16 20 22 Respiratory Effort / Characteristics Respiratory Depth Respiratory Pattern Blood Pressure 138/81 Blood Pressure Mean 99 Pulse Oximetry 93 92 93 Oxygen Delivery Method Sepsis Recent Fever Within 48 Hours Sepsis New/Unexplained Change in Mental Status Sepsis Action Taken by Nursing 10/12/19 10:00 10/12/19 10:30 10/12/19 11:00 Temperature Temperature Source Pulse Rate 65 64 76 Pulse Rate from SpO2 Sensor 65 65 66 Respiratory Rate 23 28 H 24 Respiratory Effort / Characteristics Respiratory Depth Respiratory Pattern Blood Pressure 130/68 Blood Pressure Mean 88 Pulse Oximetry 95 95 95 Oxygen Delivery Method Sepsis Recent Fever Within 48 Hours Sepsis New/Unexplained Change in Mental Status Sepsis Action Taken by Nursing 10/12/19 11:30 10/12/19 11:52 10/12/19 11:53 Temperature Temperature Source Pulse Rate 74 68 68 Pulse Rate from SpO2 Sensor 64 68 68 Respiratory Rate 24 23 25 H Respiratory Effort / Characteristics Respiratory Depth Respiratory Pattern Blood Pressure 174/111 H Blood Pressure Mean 140 Pulse Oximetry 94 95 95 Oxygen Delivery Method Sepsis Recent Fever Within 48 Hours Sepsis New/Unexplained Change in Mental Status Sepsis Action Taken by Nursing 10/12/19 12:00 10/12/19 12:30 10/12/19 12:43 Temperature Temperature Source Pulse Rate 62 67 67 Pulse Rate from SpO2 Sensor 62 68 Respiratory Rate 21 19 21 Respiratory Effort / Characteristics Respiratory Depth Respiratory Pattern Blood Pressure 193/101 H Blood Pressure Mean 113 Pulse Oximetry 96 Oxygen Delivery Method Sepsis Recent Fever Within 48 Hours Sepsis New/Unexplained Change in Mental Status Sepsis Action Taken by Nursing 10/12/19 13:00 10/12/19 13:30 10/12/19 13:44 Temperature Temperature Source Pulse Rate 62 69 79 Pulse Rate from SpO2 Sensor Respiratory Rate 17 21 21 Respiratory Effort / Characteristics Respiratory Depth Respiratory Pattern Blood Pressure 164/72 H 164/72 H Blood Pressure Mean 102 94 Pulse Oximetry 94 Oxygen Delivery Method Sepsis Recent Fever Within 48 Hours Sepsis New/Unexplained Change in Mental Status Sepsis Action Taken by Nursing 10/12/19 13:56 Temperature Temperature Source Pulse Rate Pulse Rate from SpO2 Sensor Respiratory Rate Respiratory Effort / Characteristics Respiratory Depth Respiratory Pattern Blood Pressure Blood Pressure Mean Pulse Oximetry Oxygen Delivery Method Room Air Sepsis Recent Fever Within 48 Hours Sepsis New/Unexplained Change in Mental Status Sepsis Action Taken by Nursing Laboratory Data Result diagrams: 10/12/19 07:45 10/12/19 07:45 Lab Results 10/12/19 10/12/19 10/12/19 Range/Units 07:45 07:45 07:45 WBC 10.97 H (4.8-10.8) K/uL RBC 3.60 L (4.2-5.4) M/uL Hgb 12.6 (12.0-16.0) g/dL Hct 38.0 (37-47) % MCV 105.6 H (80-100) fL MCH 35.0 H (25-34) pg MCHC 33.2 (32-36) g/dL RDW Std Deviation 56.1 H (36.4-46.3) fL RDW Coeff of Peter 14.4 (11.5-14.5) % Plt Count 239 (130-400) K/uL MPV 10.1 (7.4-10.4) fL Immature Gran % (Auto) 0.4 % Neut % (Auto) 62.5 % Lymph % (Auto) 26.3 % [place] % (Auto) 6.7 % Eos % (Auto) 3.8 % Baso % (Auto) 0.3 % Neut # (Auto) 6.87 H (1.4-6.5) K/uL Lymph # (Auto) 2.88 (1.2-3.4) K/uL [place] # (Auto) 0.73 H (0.11-0.59) K/uL Eos # (Auto) 0.42 (0-0.5) K/uL Baso # (Auto) 0.03 (0-0.2) K/uL Immature Gran # (Auto) 0.04 H (0.00-0.02) K/uL PT 10.6 (9.0-12.0) Seconds INR 1.0 (0.9-1.1) APTT 21.4 (21.0-31.0) Seconds PTT Ratio 0.8 Sodium 139 (136-145) mmol/L Potassium 3.8 (3.5-5.1) mmol/L Chloride 109 H (98-107) mmol/L Carbon Dioxide 23 (21-32) mmol/L Anion Gap 7.0 (3-11) BUN 15 (7-18) mg/dl Creatinine 1.10 (0.6-1.2) mg/dl Est Cr Clr Drug Dosing 30.6 ml/min Est GFR ( Amer) 53.8 Est GFR (Non-Af Amer) 46.4 BUN/Creatinine Ratio 13.5 (10-20) Glucose 131 H (70-99) mg/dl Calcium 8.8 (8.5-10.1) mg/dl Total Bilirubin 0.5 (0.2-1) mg/dl AST 40 H (15-37) U/L ALT 22 (12-78) U/L Alkaline Phosphatase 98 (45-117) U/L Troponin I < 0.015 (0-0.045) ng/ml NT-Pro-B Natriuret Pep 711 (0-1800) pg/ml Total Protein 6.9 (6.4-8.2) gm/dl Albumin 3.1 L (3.4-5.0) gm/dl Globulin 3.8 (2.5-4.0) gm/dl Albumin/Globulin Ratio 0.8 L (0.9-2) TSH (0.300-4.500) uIu/ml COVID-19 Eval Order COVID-19 PCR (Negative) 10/12/19 10/12/19 10/12/19 Range/Units 07:45 09:56 09:56 WBC (4.8-10.8) K/uL RBC (4.2-5.4) M/uL Hgb (12.0-16.0) g/dL Hct (37-47) % MCV (80-100) fL MCH (25-34) pg MCHC (32-36) g/dL RDW Std Deviation (36.4-46.3) fL RDW Coeff of Peter (11.5-14.5) % Plt Count (130-400) K/uL MPV (7.4-10.4) fL Immature Gran % (Auto) % Neut % (Auto) % Lymph % (Auto) % [place] % (Auto) % Eos % (Auto) % Baso % (Auto) % Neut # (Auto) (1.4-6.5) K/uL Lymph # (Auto) (1.2-3.4) K/uL [place] # (Auto) (0.11-0.59) K/uL Eos # (Auto) (0-0.5) K/uL Baso # (Auto) (0-0.2) K/uL Immature Gran # (Auto) (0.00-0.02) K/uL PT (9.0-12.0) Seconds INR (0.9-1.1) APTT (21.0-31.0) Seconds PTT Ratio Sodium (136-145) mmol/L Potassium (3.5-5.1) mmol/L Chloride (98-107) mmol/L Carbon Dioxide (21-32) mmol/L Anion Gap (3-11) BUN (7-18) mg/dl Creatinine (0.6-1.2) mg/dl Est Cr Clr Drug Dosing ml/min Est GFR ( Amer) Est GFR (Non-Af Amer) BUN/Creatinine Ratio (10-20) Glucose (70-99) mg/dl Calcium (8.5-10.1) mg/dl Total Bilirubin (0.2-1) mg/dl AST (15-37) U/L ALT (12-78) U/L Alkaline Phosphatase (45-117) U/L Troponin I (0-0.045) ng/ml NT-Pro-B Natriuret Pep (0-1800) pg/ml Total Protein (6.4-8.2) gm/dl Albumin (3.4-5.0) gm/dl Globulin (2.5-4.0) gm/dl Albumin/Globulin Ratio (0.9-2) TSH 0.400 (0.300-4.500) uIu/ml COVID-19 Eval Order Covid19 Done at [facility] COVID-19 PCR NEGATIVE (Negative) Administered Medications Heparin Sodium (Porcine) (Heparin Sod 5,000 Unit/0.5 Ml Vial) 5,000 units SQ Q8 ALEXEI Stop: 11/11/19 14:16 Last Admin: 10/12/19 16:07 Dose: 5,000 units Documented by: Sodium Chloride (Nss 1000ml) 1,000 mls @ 80 mls/hr IV .[id number] ALEXEI Stop: 10/13/19 02:46 Last Admin: 10/12/19 16:06 Dose: 80 mls/hr Documented by: Discontinued Medications Gabapentin (Gabapentin 600 Mg Tab) 600 mg PO NOW ONE Stop: 10/12/19 14:18 Last Admin: 10/12/19 16:06 Dose: 600 mg Documented by: Ceftriaxone Sodium (Rocephin) 1,000 mg in 50 mls @ 100 mls/hr IV NOW STA Stop: 10/12/19 09:45 Last Infusion: 10/12/19 09:52 Dose: 0 mls/hr Documented by: [id number] Admin: 10/12/19 09:31 Dose: 100 mls/hr Documented by: [id number] Doxycycline Hyclate 100 mg/ (Dextrose) 110 mls @ 50 mls/hr IV NOW STA Stop: 10/12/19 11:27 Last Infusion: 10/12/19 12:12 Dose: 0 mls/hr Documented by: [id number] Admin: 10/12/19 09:52 Dose: 50 mls/hr Documented by: [id number] Discharge Plan Visit Data Chief Complaint: Respiratory Problems Stated Complaint: HARD TO BREATHE ED Provider: Thong Coelho ED Midlevel Provider: Mayela Hamilton Discharge Problem: Community acquired pneumonia, SOB (shortness of breath), Lab test negative for COVID-19 virus Patient Disposition: Admitted As Inpatient Condition: Good Discharge Instructions Interventions: ED Discharge Assessment Last Done: 10/12/19 13:56 Discharge Problem: Community acquired pneumonia Qualifiers: Laterality: left Lung location: lower lobe of lung Qualified Code(s): J18.9 - Pneumonia, unspecified organism
[2019-10-12 07:57] LABS: Basophils # (auto) 0.03 K/uL (0-0.2); Basophils % (auto) 0.3 %; Eosinophils # (auto) 0.42 K/uL (0-0.5); Eosinophils % (auto) 3.8 %; Hemoglobin 12.6 g/dL (12.0-16.0); Immature Granulocytes # (auto) 0.04 K/uL (0.00-0.02); Immature Granulocytes % (auto) 0.4 %; Lymphocytes # (auto) 2.88 K/uL (1.2-3.4); Lymphocytes % (auto) 26.3 %; Mean Corpuscular Hgb Conc 33.2 g/dL (32-36); Mean Corpuscular Volume 105.6 fL (80-100); Mean Platelet Volume 10.1 fL (7.4-10.4); Monocytes # (auto) 0.73 K/uL (0.11-0.59); Monocytes % (auto) 6.7 %; Neutrophils # (auto) 6.87 K/uL (1.4-6.5); Neutrophils % (auto) 62.5 %; Platelet Count 239 K/uL (130-400); RDW Coefficient of Variation 14.4 % (11.5-14.5); RDW Standard Deviation 56.1 fL (36.4-46.3); White Blood Count 10.97 K/uL (4.8-10.8)
--- NOTE | 2019-10-12 08:00 | XRay Report ---
XR chest 1V portable CLINICAL HISTORY: Dyspnea, cough COMPARISON STUDY: 01/28/2016 FINDINGS: Mild stable cardiomegaly. Fixed subtle hernia. Minimal interstitial infiltrate left lung base. Lungs otherwise appear clear. Deformity right humeral head and neck consistent with old trauma. Several old left-sided rib fracture s. IMPRESSION: 1. Minimal interstitial infiltrate left base. Mild stable cardiomegaly. Chronic changes as noted. ACT 112: Negative or not required by law. The above report was generated using voice recognition software. It may contain grammatical, syntax or spelling errors. Electronically signed by: Romie Toro M.D. 10/12/2019 7:58 AM
[2019-10-12 08:08] LABS: Partial Thromboplastin Ratio 0.8; Partial Thromboplastin Time 21.4 Seconds (21.0-31.0); Prothrombin Time 10.6 Seconds (9.0-12.0)
[2019-10-12 08:11] LABS: Albumin Level 3.1 gm/dl (3.4-5.0); Aspartate Aminotransferase 40 U/L (15-37); BUN Creatinine Ratio 13.5 (10-20); Blood Urea Nitrogen 15 mg/dl (7-18); Calcium 8.8 mg/dl (8.5-10.1); Carbon Dioxide 23 mmol/L (21-32); Chloride 109 mmol/L (98-107); Creatinine Clr Calc Pharmacy 30.6 ml/min; Est GFR (African American) 53.8; Est GFR (Non-African American) 46.4; Glucose 131 mg/dl (70-99); Potassium 3.8 mmol/L (3.5-5.1); Sodium 139 mmol/L (136-145)
[2019-10-12 08:17] LABS: Alanine Aminotransferase 22 U/L (12-78); Albumin Globulin Ratio 0.8 (0.9-2); Alkaline Phosphatase 98 U/L (45-117); Bilirubin,Total 0.5 mg/dl (0.2-1); Globulin 3.8 gm/dl (2.5-4.0); NT Pro B Type Natriuretic Pept 711 pg/ml (0-1800); Total Protein 6.9 gm/dl (6.4-8.2); Troponin I < 0.015 ng/ml (0-0.045)
[2019-10-12] MEDS ORDERED: DOXYCYCLINE HYCLATE 100 MG in DEXTROSE 5% 100 ML IV STA (09:16)
[2019-10-12] MEDS ORDERED: cefTRIAXone SODIUM 1,000 MG/50 ML BAG IV STA (09:16)
--- NOTE | 2019-10-12 09:23 | Emergency Department Note ---
ED Visit Note The patient was seen and examined with Mayela Hamilton NP. I agree with the history, physical and findings. Please see the note for disposition and details. Patient has an infiltrate in the left base. White count mildly elevated at 10.97. There are anterior T wave inversions which are new compared to last ECG. Patient given IV Rocephin and doxycycline. Consultation made with the [facility]ist service for further management. .
--- NOTE | 2019-10-12 10:43 | History & Physical Report ---
Date of Service October 12, 2019 Assessment & Plan (1) Pneumonia: Pt is 83 y/o F with PMH CAD s/p bare metal stent in 2014, HTN, hypothyroidism, CKD III, anxiety, depression, GERD presented to ER with c/o cough and SOB x several days. In ER pt afebrile, P: 80, R: 20, BP: 148/93, 138/81, 92-95% on RA. WBC: 10.9 CXR: Minimal interstitial infiltrate left base -COVID 19 PCR negative -In ER given Rocephin IV, Doxycycline IV -blood culture pending -MRSA, legionella pending -Will continue Rocephin, doxycycline -IVF -CBC, BMP in am (2) CAD (coronary artery disease): H/O cardiac cath in 2014 with 70-80% narrowing of LAD diagonal branch and 80% narrowing of OM branch, 50% narrowing of RCA. Had bare metal stent to LAD diagonal branch and medical management for OM and RCA Denies CP. Troponin negative. EKG with sinus rhythm with T wave inversion septal leads. EKG in 09/2016 without T wave inversions, EKG in 05/2016 and prior with T wave inversions septal leads -Continue aspirin, metoprolol succinate, atorvastatin -EKG in am (3) HTN (hypertension): -Continue metoprolol succinate -Monitor BP (4) CKD (chronic kidney disease), stage III: Cr: 1.1. Baseline Cr: 1.0-1.3 -Monitor renal functions, avoid nephrotoxic agents when possible (5) Alcohol use: Drinks 4/day. Prior h/o heavy alcohol use and h/o alcohol withdrawal seizure at that time -Alcohol withdrawal protocol with low dose gabapentin (6) Depression: (7) Anxiety: -On sertraline, will hold todays dose and repeat EKG in am to recheck Qtc. (8) GERD (gastroesophageal reflux disease): -Continue PPI (9) Hypothyroidism: -Continue levothyroxine DVT Prophylaxis -SCDs DNR/DNI as per discussion with pt Follows with Dr Shah for routine care Pt was seen and care coordinated with Dr Dove. See addendum History of Present Illness Chief Complaint: SOB Primary Care Provider: Thong Shah MD Pt is 83 y/o F with PMH CAD s/p bare metal stent in 2014, HTN, hypothyroidism, CKD III, anxiety, depression, GERD presented to ER with c/o cough and SOB x several days. Pt states always has some post nasal drip with some cough to clear her throat. Her caregiver states she has noticed some increased cough. Also noticed SOB worse with exertion. Denies any fever/chills. Reports pt has not went out of house. Has in home caregivers 21/09. Denies any known exposure to COVID 19. Uses walker and wheelchair at home. Denies any falls. Denies diaphoresis, N/V/D/C, [place], dizziness, syncope, vision changes, neck pain, CP, SOB, orthopnea, palpitations, cough, sore throat, choking, otalgia, rhinorrhea, abdominal pain, paresthesias, increased weakness, extremity edema, rashes, u rinary symptoms. Allergies Allergy/AdvReac Type Severity Reaction Status Date / Time No Known Allergies Allergy Unverified 10/12/19 08:28 Home Medications Home Medications Medication Instructions Recorded Confirmed Type aspirin [Aspir-81] 81 mg PO DAILY 10/12/19 10/12/19 History atorvastatin 80 mg PO HS 10/12/19 10/12/19 History folic acid 0.4 mg PO DAILY 10/12/19 10/12/19 History levothyroxine 125 mcg PO DAILYBB 10/12/19 10/12/19 History metoprolol succinate 25 mg PO BID 10/12/19 10/12/19 History multivitamin [Multiple Vitamin] 1 tab PO DAILY 10/12/19 10/12/19 History pantoprazole 40 mg PO DAILY 10/12/19 10/12/19 History psyllium husk [Metamucil] 0.4 g PO DAILY 10/12/19 10/12/19 History pyridoxine (vitamin B6) [Vitamin 100 mg PO DAILY 10/12/19 10/12/19 History B-6] sertraline 50 mg PO HS 10/12/19 10/12/19 History trazodone 150 mg PO HS 10/12/19 10/12/19 History Past Med/Surg History Medical History Alcohol use Anxiety Benign neoplasm of colon (09/25/11) "- adenomatous tissue 11/21/09- polyps all small TVA 09/10/2011- adenomatous polyps" CAD (coronary artery disease) CKD (chronic kidney disease), stage III Depression GERD (gastroesophageal reflux disease) Hip fracture, right "s/p ORIF" HTN (hypertension) Macular degeneration Secondary hypothyroidism (09/25/11) Surgical History H/O colonoscopy H/O hemorrhoidectomy H/O tubal ligation S/P angioplasty with stent "10/26/2014- BMS to 1st diagonal" Family History Other Coronary heart disease Social History (Updated 10/12/19 @ 13:38 by Crystal Fields PA-C) Smoking Status: Former smoker Second Hand Exposure: No; Do You Dip or Chew Tobacco: No; Tobacco Cessation Education Requested by Patient: No Hx Alcohol Use: Yes Alcohol type: hard liquor Hx Substance Use: No Preferred Language: Danish Communication Ability: Effective Assembler [employer]ather [employer]s Required: No Beliefs That Will Affect Care: None Current Living Situation: Other Current Living Situation Comment: home with 24 hour caregivers Other Information That Helps Us Care for You: No Feels Safe at Home: Yes Safety Concerns: Feels Safe At This Time Review of Systems Review of Systems: All systems reviewed & are unremarkable except as noted in HPI & below Physical Exam Physical Exam: General: no distress, WDWN Head: normocephalic, atraumatic Eyes: PERRL, EOM's intact, conjunctiva non-injected, anicteric ENT: normal inspection external ears, nose, mucous membranes moist Neck: supple, trachea midline Lungs: clear, no respiratory distress, no wheezing/rhonchi/rales CV: RRR, no murmur, no pretibial edema Abd: normal BS, soft, non-tender Ext: no cyanosis, no calf tenderness Neuro: A&O to person, place, no focal deficits noted, normal affect Skin: warm, dry Results & Data Results & Data ([facility]) Vital Signs (Past 12 Hours) Vital Signs Temp Pulse Resp BP Pulse Ox 10/12/19 10:00 65 23 130/68 95 10/12/19 09:30 65 22 93 10/12/19 09:00 64 20 92 08/13/20 08:50 66 16 138/81 93 10/12/19 08:30 67 27 H 92 10/12/19 08:00 68 19 92 10/12/19 07:45 68 17 93 10/12/19 07:39 92 10/12/19 07:17 36.4 C L 80 20 148/93 H 92 10/12/19 07:10 92 Laboratory Results Short CBC 10/12/19 Range/Units 07:45 WBC 10.97 H (4.8-10.8) K/uL Hgb 12.6 (12.0-16.0) g/dL Hct 38.0 (37-47) % Plt Count 239 (130-400) K/uL BMP 10/12/19 07:45 Sodium 139 Potassium 3.8 Chloride 109 H Carbon Dioxide 23 BUN 15 Creatinine 1.10 Glucose 131 H Calcium 8.8 Cardiac Enzymes 10/12/19 Range/Units 07:45 Troponin I < 0.015 (0-0.045) ng/ml Liver Function 10/12/19 Range/Units 07:45 Total Bilirubin 0.5 (0.2-1) mg/dl AST 40 H (15-37) U/L ALT 22 (12-78) U/L Alkaline Phosphatase 98 (45-117) U/L Albumin 3.1 L (3.4-5.0) gm/dl Diagnostic Findings CXR: IMPRESSION: 1. Minimal interstitial infiltrate left base. Mild stable cardiomegaly. Chronic changes as noted. Code Status & VTE Plan VTE Prophylaxis Plan VTE Prophylaxis will be ordered: Yes Supervising Physician Co-Signing Physician Notes 83 yo F who has been bedridden at home for the past year. She has 24/7 caregivers. Cough increased for the past few days, nonproductive cough, no fevers/chills reported. Relevant medical history of ethanol abuse. She reports 4 drinks daily at this point. Last drink was roughly 24 hours ago. Appears tremulous and easily distractible but is answering questions appropriately with a couple of requests to repeat my question, ?hearing loss. She denies pain and isn't sure if she feels better since treatment in the ER today. Reporting some nausea. Denies feeling tremulous, but admits she feels she needs something to calm her down. Normal cardiac exam with no murmur heard on auscultation. No edema present. Extremities WWP. Normal pulmonary exam w no increased work of breathing and no crackles, wheezes or rales. Agree with plan as above including Rocephin and Doxy, lab trend (WBC in normal range) and cultures pending. She is not requiring oxygen and has no increased respiratory effort. She has been on Xanax PRN and Desyrel at night to help her sleep, however, this has been cut back as she has not been able to get into the clinic for re-evaluation. Agree with ETOH withdrawal protocol including half dose gabapentin and PRN Ativan. Ativan PRN for sleep as well in response for her request for medication to help with her chronic insomnia. HTN at this time (190/95) is concerning for ETOH withdrawal with evidence of tremulousness and anxiety. Another possible etiology includes but not limited to white coat syndrome which is what the patient thought was going on. Will give small dose of Ativan at this time with reassessment of vitals and symptom improvement. DO Derrell
[2019-10-12] MEDS ORDERED: SODIUM CHLORIDE 0.9% 1000ML 1,000 ML IV SCH (14:17)
[2019-10-12] MEDS ORDERED: GABAPENTIN 600 MG TAB PO ONE (14:17)
[2019-10-12] MEDS ORDERED: GABAPENTIN 600MG ALCOHOL WITHDRAWAL LOAD PO STA (14:17)
[2019-10-12] MEDS ORDERED: ACETAMINOPHEN 325 MG TAB PO PRN (14:17)
[2019-10-12] MEDS ORDERED: LORazepam 1 MG/2 ML VIAL IV PRN (15:04)
[2019-10-12] MEDS: HEPARIN SOD 5,000 UNIT/0.5 ML VIAL SQ SCH ×2 (16:07→21:16)
[2019-10-12] MEDS ORDERED: LORazepam 0.5 MG/1 ML VIAL IV STA (16:25)
[2019-10-12] MEDS ORDERED: LORazepam 0.5 MG/1 ML VIAL IV PRN (16:38)
[2019-10-12] MEDS ORDERED: ATORVASTATIN 40 MG TAB PO SCH (21:00)
[2019-10-12] MEDS ORDERED: TRAZODONE HCL 50 MG TAB PO SCH (21:00)
[2019-10-12] MEDS ORDERED: METOPROLOL SUCC 25MG EXT REL TAB PO SCH (21:00)
[2019-10-12] MEDS: ATORVASTATIN 40 MG TAB PO SCH (21:16)
[2019-10-12] MEDS: METOPROLOL SUCC 25MG EXT REL TAB PO SCH (21:16)
[2019-10-12] MEDS: DOXYCYCLINE HYCLATE 100 MG CAP PO SCH (21:17)
[2019-10-12] MEDS: GABAPENTIN 100 MG CAP PO SCH (21:28)
[2019-10-12] MEDS: TRAZODONE HCL 50 MG TAB PO SCH (21:28)
[2019-10-13] MEDS: GABAPENTIN 100 MG CAP PO SCH (01:38)
[2019-10-13] MEDS: HEPARIN SOD 5,000 UNIT/0.5 ML VIAL SQ SCH ×2 (05:19→21:07)
[2019-10-13] MEDS: LEVOTHYROXINE SODIUM 125 MCG TABLET PO SCH (05:20)
--- NOTE | 2019-10-13 06:22 | Electrocardiogram Report ---
Test Reason : Blood Pressure : / mmHG Vent. Rate : 066 BPM Atrial Rate : 066 BPM P-R Int : 164 ms QRS Dur : 076 ms QT Int : 460 ms P-R-T Axes : 019 000 035 degrees QTc Int : 482 ms Poor data quality, interpretation may be adversely affected Normal sinus rhythm Prolonged QT Nonspecific T wave abnormality When compared with ECG of 30-SEP-2016 14:34, T wave inversion now evident in Anterior leads Confirmed by Abdiaziz Bundy ([id number]) on 10/13/2019 6:22:16 AM Referred By: REFERRED SELF Confirmed By:Abdiaziz Bundy
[2019-10-13] MEDS ORDERED: LEVOTHYROXINE SODIUM 125 MCG TABLET PO SCH (06:30)
[2019-10-13 07:01] LABS: Hematocrit (blood only) 36.7 % (37-47); Mean Corpuscular Hemoglobin 35.3 pg (25-34); Mean Corpuscular Hgb Conc 32.7 g/dL (32-36); Mean Corpuscular Volume 107.9 fL (80-100); Mean Platelet Volume 10.8 fL (7.4-10.4); Platelet Count 226 K/uL (130-400); RDW Coefficient of Variation 14.7 % (11.5-14.5); White Blood Count 9.54 K/uL (4.8-10.8)
[2019-10-13 07:49] LABS: BUN Creatinine Ratio 17.5 (10-20); Calcium 8.1 mg/dl (8.5-10.1); Creatinine Clr Calc Pharmacy 43.2 ml/min; Est GFR (African American) 81.5; Est GFR (Non-African American) 70.3; Potassium 3.8 mmol/L (3.5-5.1)
[2019-10-13] MEDS: cefTRIAXone SODIUM 1,000 MG in DEXTROSE 5% 50 ML IV SCH (08:45)
[2019-10-13] MEDS: MULTIVITAMIN TAB PO SCH (08:50)
[2019-10-13] MEDS: PSYLLIUM 58.6% POWDER PACKET PO SCH (08:51)
[2019-10-13] MEDS: FOLIC ACID 400 MCG TAB PO SCH (08:51)
[2019-10-13] MEDS: PYRIDOXINE HCL 50 MG TAB PO SCH (08:51)
[2019-10-13] MEDS: DOXYCYCLINE HYCLATE 100 MG CAP PO SCH ×2 (08:52→21:07)
[2019-10-13] MEDS: METOPROLOL SUCC 25MG EXT REL TAB PO SCH ×2 (08:52→21:05)
[2019-10-13] MEDS ORDERED: PANTOprazole 40 MG TAB PO SCH ×2 (09:00)
[2019-10-13] MEDS ORDERED: PYRIDOXINE HCL 50 MG TAB PO SCH (09:00)
[2019-10-13] MEDS ORDERED: MULTIVITAMIN TAB PO SCH (09:00)
[2019-10-13] MEDS ORDERED: FOLIC ACID 400 MCG TAB PO SCH (09:00)
[2019-10-13] MEDS ORDERED: ASPIRIN 81 MG ECTAB PO SCH ×2 (09:00)
[2019-10-13] MEDS ORDERED: LORazepam 0.5 MG TAB PO PRN (09:18)
--- NOTE | 2019-10-13 12:12 | Gastrointestinal Consultation ---
Date of Consultation October 13, 2019 Assessment & Plan (1) Community acquired pneumonia: (2) Nausea & vomiting: (3) Alcohol use: Pt is a 83 y/o female currently admitted for pneumonia receiving IV Ceftriaxone, seen for persistent nausea, vomiting per daughter's request. Pt reports nausea w position change. She has hx of heavy ETOH uses, still drinks 4 shots of vodka daily and takes Ibuprofen. Suspect she has gastritis or possible PUD. - Will start her on Protonix 40mg BID - ETOH cessation and avoidance of NSAIDs advised. - Symptomatic management w antiemetics - Check orthostatic blood pressure - Defer inpt endoscopic workup given current pneumonia. However upon her DC if her n/v symptoms persist, she can f/u w GI and consider getting EGD evaluation done. Supervising Physician Co-Signing Physician Notes Attending attestation I have seen, examined this patient, and agree with the findings and above by our mid-level provider KI Phipps, with the following additions - eating solid food without nausea - Recommend Etoh cessation - call with questions - consider PPI trial and outpt f/u if necessary History of Present Illness Reason for Consultation: Persistent nausea Requesting Physician: Dr. Markos Espana Attending Physician: Dr. Jae Guzman History of Present Illness Pt is a 83 y/o female who presented with SOB, BUTLER found to have pneumonia and getting Ceftriaxone, seen for persistent nausea per her daughter's request (Nydia). Nydia lives in [place], told me over phone that pt is always having nausea in the morning and may have vomiting once a day. Pt drinks heavily majority of her life, now down to 4 shots of Vodka daily. Pt confirms that she does get dizziness and nausea when she sits up from laying down. She denies any reflux, heartburn, dysphagia, loss of appetite or weight loss. Stools can be loose but nothing out of ordinary. She denies any rectal bleeding or dark tarry stools. Denies any hematemesis or coffee ground emesis when she vomits. She confirms that she drinks 4 shots of vodka daily and she also takes Ibuprofen for aches/pains. No hx of EGD noted. This morning she feels well, no abd pain, n/v and able to tolerate solid meals. Allergies Allergy/AdvReac Type Severity Reaction Status Date / Time No Known Allergies Allergy Unverified 10/12/19 08:28 Home Medications Home Medications Medication Instructions Recorded Confirmed Type aspirin [Aspir-81] 81 mg PO DAILY 10/12/19 10/12/19 History atorvastatin 80 mg PO HS 10/12/19 10/12/19 History folic acid 0.4 mg PO DAILY 10/12/19 10/12/19 History levothyroxine 125 mcg PO DAILYBB 10/12/19 10/12/19 History metoprolol succinate 25 mg PO BID 10/12/19 10/12/19 History multivitamin [Multiple Vitamin] 1 tab PO DAILY 10/12/19 10/12/19 History pantoprazole 40 mg PO DAILY 10/12/19 10/12/19 History psyllium husk [Metamucil] 0.4 g PO DAILY 10/12/19 10/12/19 History pyridoxine (vitamin B6) [Vitamin 100 mg PO DAILY 10/12/19 10/12/19 History B-6] sertraline 50 mg PO HS 10/12/19 10/12/19 History trazodone 150 mg PO HS 10/12/19 10/12/19 History Patient History Medical History Alcohol use Anxiety Benign neoplasm of colon (09/25/11) "- adenomatous tissue 11/21/09- polyps all small TVA 09/10/2011- adenomatous polyps" CAD (coronary artery disease) CKD (chronic kidney disease), stage III Depression GERD (gastroesophageal reflux disease) Hip fracture, right "s/p ORIF" HTN (hypertension) Macular degeneration Secondary hypothyroidism (09/25/11) Surgical History H/O colonoscopy H/O hemorrhoidectomy H/O tubal ligation S/P angioplasty with stent "10/26/2014- BMS to 1st diagonal" Family History Other Coronary heart disease Social History Smoking Status: Former smoker Second Hand Exposure: No; Do You Dip or Chew Tobacco: No; Tobacco Cessation Education Requested by Patient: No Hx Alcohol Use: Yes Alcohol type: hard liquor Hx Substance Use: No Preferred Language: Rwandan Communication Ability: Effective Playback Operator Required: No Beliefs That Will Affect Care: None marital status: / Current Living Situation: Other Current Living Situation Comment: home with 24 hour caregivers Other Information That Helps Us Care for You: No Feels Safe at Home: Yes Safety Concerns: Feels Safe At This Time Review of Systems Review of Systems: All systems reviewed & are unremarkable except as noted in HPI & below Physical Exam Constitutional: WD/WN, vitals as above well groomed, cooperative and comfortable Eyes: PERRL, conjunctivae normal, anicteric sclerae ENMT: external ear and nose normal, oropharynx normal Respiratory: normal respiratory effort, lungs clear to auscultation Cardiovascular: RRR, no murmur, no edema Gastrointestinal (Abdomen): normal bowel sounds, soft, nontender, no hepatosplenomegaly Skin: no rashes, warm and dry Psychiatric: A+Ox3, euthymic affect Lymphatic: no lymphedema Results & Data ([facility]) Vital Signs (Past 12 Hours) Vital Signs Temp Pulse Resp BP Pulse Ox 10/13/19 11:25 36.7 C 60 20 154/84 H 96 10/13/19 07:13 36.4 C L 53 L 20 152/82 H 95 10/13/19 01:41 76 164/86 H (1) Community acquired pneumonia Laterality: left Lung location: lower lobe of lung Qualified Code(s): J18.9 - Pneumonia, unspecified organism
[2019-10-13] MEDS ORDERED: GABAPENTIN 600 MG TAB PO SCH (13:45)
--- NOTE | 2019-10-13 14:38 | XRay Report ---
KUB HISTORY: Acute nausea with possible constipation nausea, eval for constipation COMPARISON: Chest radiograph 10/12/2019 FINDINGS: Bowel gas pattern is nonobstructive. Colonic stool volume appears be mild and within normal limits. Renal shadows are partially obscured by bowel gas. Radiodensities project over the upper ab domen suggestive of renal calculi versus vascular calcifications. No definite ureteral calculus. Nume elaine pelvic basin calcifications are suggestive of probable phleboliths. No pneumoperitoneum or pneum atosis. Hardware of the right proximal femur. Degenerative changes of the spine, pelvis and hips. Age -indeterminate compression deformities at T12, L1 and L5. IMPRESSION: 1. Nonobstructive bowel gas pattern without radiographic evidence of constipation. 2. Radiodensities projecting over the upper abdomen are suggestive of vascular calcifications versus renal calculi. No ureteral calculi identified. ACT 112: Negative or not required by law. The above report was generated using voice recognition software. It may contain grammatical, syntax o r spelling errors. Electronically signed by: Edgardo Montelongo M.D. 10/13/2019 2:37 PM
--- NOTE | 2019-10-13 14:48 | Hospitalist Progress Note ---
Date of Service October 13, 2019 Assessment & Plan (1) Pneumonia: 83-year-old female with history of coronary disease status post stent placement, hypertension, CKD stage III, Other problems noted below presenting with shortness of breath. Pneumonia, left lower lobe Afebrile, no leukocytosis, saturating well on room air Blood cultures: Pending Clinically improving Continue ceftriaxone plus doxycycline, anticipate discharge to home on the oral doxycycline pending cultures We will add nebs every 6 hours and Mucinex for pulmonary toilet Continue to monitor closely Nausea, abdominal discomfort In the setting of chronic aspirin use and alcohol use GI service consulted KUB: Unrevealing Recommend to increase on Protonix to twice daily In light of pneumonia, meant to follow-up as an outpatient for discussion of possible EGD as an outpatient Alcohol use Patient's family confirms patient drinks at least 4 shots of vodka per day No signs of alcohol withdrawal at this time Continue alcohol withdrawal protocol including gabapentin taper PRN Ativan Monitor closely Weakness Secondary to pneumonia Will need hospital bed at home patient requires frequent changes in body positions in ways not feasible with an ordinary bed to alleviate pain History of CAD, status post stent placement Continue aspirin, always take with full stomach Continue metoprolol, atorvastatin Hypertension Stable Monitor CKD stage II Stable DVT prophylaxis Heparin every 12 Disposition PT OT evaluation Patient prefers to return home upon discharge medically stable Plan of care discussed with patient and her daughter Nydia over the phone All questions were answered They are understanding, agreeable, comfortable with the plan of care Admission and Anticipated Discharge Date Admission Date: October 12, 2019 Subjective Follow-up for pneumonia Seen resting in bed, comfortable, sitting up, on room air, not in distress Oriented x3, answers all questions appropriately States she feels improved today, still having dry cough Denies fevers or chills, chest pain, headache, dizziness, palpitations Denies abdominal pain or nausea or vomiting Denies tremors, anxiety, confusion, hallucinations No other symptoms Discussed with patient's daughter Rabia over the phone She reports that patient has been having nausea at home, appetite is poor, but no weight loss or melena/hematochezia noted Requesting GI evaluation while inpatient Review of Systems Review of Systems: All systems reviewed & are unremarkable except as noted in HPI & below Physical Exam Physical Exam: General- oriented x 3, not in distress, speaks in sentences with no effort or accessory muscle use Head- atraumatic Eyes- PERRL, EOMI, anicteric ENT- oropharynx clear Neck- supple, no JVD, no adenopathy, no thyromegaly; carotids +2/2, no bruits appreciated Lungs-mild crackles bilateral bases, no wheezing, good air entry bilaterally Heart- normal rate, regular rhythm; no murmur, no gallop, no rub appreciated Abdomen- normal bowel sounds, nondistended, soft, nontender, no masses or hepatosplenomegaly Extremities- no pretibial edema, no calf tenderness; peripheral pulses intact Neuro- alert, oriented x 3; CN 2-12 grossly intact; motor 5/5 bilaterally;sensation 100% on all extremities; no other gross focal neurologic deficits Skin- warm & dry Results & Data Results & Data ([facility]) Vital Signs (Past 12 Hours) Vital Signs Temp Pulse Pulse Resp BP Pulse Ox 10/13/19 11:25 36.7 C 60 20 154/84 H 96 10/13/19 08:00 57 L 10/13/19 07:13 36.4 C L 53 L 20 152/82 H 95 Laboratory Results Laboratory Results - last 24 hr 10/12/19 10/13/19 10/13/19 16:26 04:00 06:10 WBC 9.54 RBC 3.40 L Hgb 12.0 Hct 36.7 L MCV 107.9 H MCH 35.3 H MCHC 32.7 RDW Std Deviation 58.0 H RDW Coeff of Peter 14.7 H Plt Count 226 MPV 10.8 H Sodium Potassium Chloride Carbon Dioxide Anion Gap BUN Creatinine Est Cr Clr Drug Dosing Est GFR ( Amer) Est GFR (Non-Af Amer) BUN/Creatinine Ratio Glucose Calcium Nasal Screen MRSA (PCR) Negative Urine Legionella Ag Pending 10/13/19 06:10 WBC RBC Hgb Hct MCV MCH MCHC RDW Std Deviation RDW Coeff of Peter Plt Count MPV Sodium 141 Potassium 3.8 Chloride 110 H Carbon Dioxide 22 Anion Gap 9.0 BUN 14 Creatinine 0.78 D Est Cr Clr Drug Dosing 43.2 Est GFR ( Amer) 81.5 Est GFR (Non-Af Amer) 70.3 BUN/Creatinine Ratio 17.5 Glucose 71 Calcium 8.1 L Nasal Screen MRSA (PCR) Urine Legionella Ag
[2019-10-13] MEDS ORDERED: XOPENEX/ATROVENT 1.25mg/0.5MG NEB COMBO NEB SCH (19:00)
[2019-10-13] MEDS: LEVALBUTEROL 1.25MG/0.5ML NEB INH SCH (19:33)
[2019-10-13] MEDS: IPRATROPIUM BROMIDE NEB SOLN 0.02% 2.5 ML VIAL INH SCH (19:33)
[2019-10-13] MEDS: ATORVASTATIN 40 MG TAB PO SCH (21:06)
[2019-10-13] MEDS: TRAZODONE HCL 50 MG TAB PO SCH (21:11)
[2019-10-13] MEDS: guaiFENesin 600 MG TABCR PO SCH (21:11)
[2019-10-13] MEDS: PANTOprazole 40 MG TAB PO SCH (21:12)
--- NOTE | 2019-10-13 22:47 | Electrocardiogram Report ---
Test Reason : Blood Pressure : / mmHG Vent. Rate : 058 BPM Atrial Rate : 058 BPM P-R Int : 206 ms QRS Dur : 080 ms QT Int : 492 ms P-R-T Axes : 063 053 064 degrees QTc Int : 482 ms Sinus bradycardia Prolonged QT When compared with ECG of 12-OCT-2019 07:31, No significant change was found Confirmed by Abdiaziz Bundy ([id number]) on 10/13/2019 10:47:26 PM Referred By: REFERRED SELF Confirmed By:Abdiaziz Bundy
[2019-10-14] MEDS: LEVALBUTEROL 1.25MG/0.5ML NEB INH SCH ×2 (01:22→07:06)
[2019-10-14] MEDS: IPRATROPIUM BROMIDE NEB SOLN 0.02% 2.5 ML VIAL INH SCH ×2 (01:22→07:06)
[2019-10-14] MEDS: LEVOTHYROXINE SODIUM 125 MCG TABLET PO SCH (06:09)
[2019-10-14] MEDS: MULTIVITAMIN TAB PO SCH (08:30)
[2019-10-14] MEDS: guaiFENesin 600 MG TABCR PO SCH (08:30)
[2019-10-14] MEDS: METOPROLOL SUCC 25MG EXT REL TAB PO SCH (08:30)
[2019-10-14] MEDS: cefTRIAXone SODIUM 1,000 MG in DEXTROSE 5% 50 ML IV SCH (08:30)
[2019-10-14] MEDS: PSYLLIUM 58.6% POWDER PACKET PO SCH (08:30)
[2019-10-14] MEDS: PANTOprazole 40 MG TAB PO SCH (08:31)
[2019-10-14] MEDS: PYRIDOXINE HCL 50 MG TAB PO SCH (08:31)
[2019-10-14] MEDS: FOLIC ACID 400 MCG TAB PO SCH (08:31)
[2019-10-14] MEDS: HEPARIN SOD 5,000 UNIT/0.5 ML VIAL SQ SCH (08:31)
[2019-10-14] MEDS: DOXYCYCLINE HYCLATE 100 MG CAP PO SCH (08:31)
[2019-10-14] MEDS ORDERED: FLUTICASONE PROPIONATE NA SPR 16 GM BTL SCH (12:00)
--- NOTE | 2019-10-14 12:15 | Hospitalist Progress Note ---
Date of Service October 14, 2019 Assessment & Plan (1) Pneumonia: 83-year-old female with history of coronary disease status post stent placement, hypertension, CKD stage III, Other problems noted below presenting with shortness of breath. Pneumonia, left lower lobe Afebrile, no leukocytosis, saturating well on room air Blood cultures: Negative after 48 hours Patient was given IV ceftriaxone and doxycycline, nebs, Mucinex Clinically improved Saturating well on room air Discharge plan: Doxycycline twice a day x5 more days to complete 7-day therapy Mucinex twice a day x1 week Incentive spirometer Follow-up with PCP next week Nausea, abdominal discomfort In the setting of chronic aspirin use and alcohol use GI service consulted KUB: Unrevealing 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 per day No signs of alcohol withdrawal at this time Patient placed on alcohol withdrawal protocol including gabapentin taper No signs of acute withdrawal noted Given prescription for 1 more day of gabapentin Encouraged to minimize alcohol drinking Weakness Secondary to pneumonia Will need hospital bed at home patient requires frequent changes in body positions in ways not feasible with an ordinary bed to alleviate pain Case management arranging for hospital bed delivery on Wednesday History of CAD, status post stent placement Continue aspirin, advised to always take with full stomach Continue metoprolol, atorvastatin Hypertension Stable Monitor CKD stage II Stable DVT prophylaxis Heparin every 12 given Disposition Discharge to home Follow-up with PCP as outlined in discharge instruction Follow-up with GI clinic in 2 weeks Plan of care discussed with patient and her caregiver at bedside in detail and at length All questions were answered They are understanding, agreeable, comfortable with the plan of care Admission and Anticipated Discharge Date Admission Date: October 12, 2019 Subjective Follow-up for pneumonia Resting in bed, comfortable, not in distress States that she feels fine overall except for nasal congestion No shortness of breath, cough has improved No fevers or chills, chest pain, palpitations, dizziness, nausea or vomiting, abdominal pain Denies tremors, anxiety, hallucinations No other symptoms States she is ready and would like to be discharged today Review of Systems Review of Systems: All systems reviewed & are unremarkable except as noted in HPI & below Physical Exam Physical Exam: General- oriented x 3, not in distress, speaks in sentences with no effort or accessory muscle use Eyes- anicteric Neck- no JVD Lungs-mild crackles on the right base, no wheezing, clear breath sounds on the left Heart- normal rate, regular rhythm; no murmurs Abdomen- normal bowel sounds, nondistended, soft, nontender Extremities- no pretibial edema, no calf tenderness Neuro- alert, oriented x 3; no gross focal neurologic deficits Skin- warm & dry Results & Data Results & Data ([facility]) Vital Signs (Past 12 Hours) Vital Signs Temp Pulse Pulse Resp BP Pulse Ox 10/14/19 11:15 36.4 C L 73 16 154/94 H 93 10/14/19 10:34 60 10/14/19 07:25 36.4 C L 96 H 20 152/85 H 94 10/14/19 07:07 69 19 94 10/14/19 03:05 36.4 C L 65 16 127/85 94
[2019-10-14] MEDS ORDERED: GABAPENTIN 400 MG CAP PO SCH (13:45)
--- NOTE | 2019-10-14 18:49 | Discharge Summary ---
Date of Service October 14, 2019 Admission HPI Per Admitting Provider Pt is 83 y/o F with PMH CAD s/p bare metal stent in 2015, HTN, hypothyroidism, CKD III, anxiety, depression, GERD presented to ER with c/o cough and SOB x several days. Pt states always has some post nasal drip with some cough to clear her throat. Her caregiver states she has noticed some increased cough. Also noticed SOB worse with exertion. Denies any fever/chills. Reports pt has not went out of house. Has in home caregivers 21/09. Denies any known exposure to COVID 19. Uses walker and wheelchair at home. Denies any falls. Denies diaphoresis, N/V/D/C, [place], dizziness, syncope, vision changes, neck pain, CP, SOB, orthopnea, palpitations, cough, sore throat, choking, otalgia, rhinorrhea, abdominal pain, paresthesias, increased weakness, extremity edema, rashes, urinary symptoms. Admission Exam Per Admitting Provider General: no distress, WDWN Head: normocephalic, atraumatic Eyes: PERRL, EOM's intact, conjunctiva non-injected, anicteric ENT: normal inspection external ears, nose, mucous membranes moist Neck: supple, trachea midline Lungs: clear, no respiratory distress, no wheezing/rhonchi/rales CV: RRR, no murmur, no pretibial edema Abd: normal BS, soft, non-tender Ext: no cyanosis, no calf tenderness Neuro: A&O to person, place, no focal deficits noted, normal affect Skin: warm, dry Principal Diagnosis Pneumonia Discharge Exam General- oriented x 3, not in distress, speaks in sentences with no effort or accessory muscle use Eyes- anicteric Neck- no JVD Lungs-mild crackles on the right base, no wheezing, clear breath sounds on the left Heart- normal rate, regular rhythm; no murmurs Abdomen- normal bowel sounds, nondistended, soft, nontender Extremities- no pretibial edema, no calf tenderness Neuro- alert, oriented x 3; no gross focal neurologic deficits Skin- warm & dry Discharge Data Allergies Allergy/AdvReac Type Severity Reaction Status Date / Time No Known Allergies Allergy Unverified 10/12/19 08:28 Consultations 10/12/19 09:40 ED Decision to Admit Stat 10/12/19 14:17 Consult Case Management - Discharge Planning Routine 10/13/19 09:15 Consult Gastroenterology Routine Ordered Studies CXR: FINDINGS: Mild stable cardiomegaly. Fixed subtle hernia. Minimal interstitial infiltrate left lung base. Lungs otherwise appear clear. Deformity right humeral head and neck consistent with old trauma. Several old left-sided rib fractures. IMPRESSION: 1. Minimal interstitial infiltrate left base. Mild stable cardiomegaly. Chronic changes as noted. KUB: COMPARISON: Chest radiograph 10/12/2019 FINDINGS: Bowel gas pattern is nonobstructive. Colonic stool volume appears be mild and within normal limits. Renal shadows are partially obscured by bowel gas. Radiodensities project over the upper abdomen suggestive of renal calculi versus vascular calcifications. No definite ureteral calculus. Numerous pelvic basin calcifications are suggestive of probable phleboliths. No pneumoperitoneum or pneumatosis. Hardware of the right proximal femur. Degenerative changes of the spine, pelvis and hips. Age-indeterminate compression deformities at T12, L1 and L5. IMPRESSION: 1. Nonobstructive bowel gas pattern without radiographic evidence of constipation. 2. Radiodensities projecting over the upper abdomen are suggestive of vascular calcifications versus renal calculi. No ureteral calculi identified. Hospital Course (1) Pneumonia: 83-year-old female with history of coronary disease status post stent placement, hypertension, CKD stage III, Other problems noted below presenting with shortness of breath. Pneumonia, left lower lobe Afebrile, no leukocytosis, saturating well on room air CXR: Minimal interstitial infiltrate left base. Mild stable cardiomegaly. Chronic changes as noted. Blood cultures: Negative after 48 hours Patient was given IV ceftriaxone and doxycycline, nebs, Mucinex Clinically improved, Saturating well on room air Discharge plan: Doxycycline twice a day x5 more days to complete 7-day therapy Mucinex twice a day x1 week Incentive spirometer Follow-up with PCP next week Nausea, abdominal discomfort possible gastritis In the setting of chronic aspirin use and alcohol use GI service consulted KUB: 1. Nonobstructive bowel gas pattern without radiographic evidence of constipation. 2. Radiodensities projecting over the upper abdomen are suggestive of vascular calcifications versus renal calculi. No ureteral calculi identified. 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 per day No signs of alcohol withdrawal at this time Patient placed on alcohol withdrawal protocol including gabapentin taper No signs of acute withdrawal noted Given prescription for 1 more day of gabapentin Encouraged to minimize alcohol consumption Weakness Secondary to pneumonia Will need hospital bed at home patient requires frequent changes in body positions in ways not feasible with an ordinary bed to alleviate pain Case management arranging for hospital bed delivery on Wednesday History of CAD, status post stent placement Continue aspirin, advised to always take with full stomach Continue metoprolol, atorvastatin Hypertension Stable Monitor CKD stage II Stable DVT prophylaxis Heparin every 12 given Disposition Discharge to home Follow-up with PCP as outlined in discharge instruction Follow-up with GI clinic in 2 weeks Plan of care discussed with patient and her caregiver at bedside in detail and at length All questions were answered They are understanding, agreeable, comfortable with the plan of care Total Time Total Time Spent Total Time Spent (In Minutes): 50 MINUTES Discharge Plan Discharge Items Patient Disposition: Home - Self-Care Reason For Visit: PNEUMONIA Discharge Diagnosis: Pneumonia Condition on Discharge: Good Activity: Resume your previous activity Activity Comment: Gradually as tolerated Weightbearing: Full weightbearing Non-emergency contact: Primary Care Provider Call non-emergency contact if: you have any medication questions, your symptoms worsen and you have a fever Follow-up/Referrals: Jae Guzman [Physician] - Thong Shah MD [Primary Care Provider] - Diet: Heart Healthy Addtl Attending Provider Instructions: PLEASE REVIEW YOUR NEW MEDICATION LIST AND FOLLOW INSTRUCTIONS CAREFULLY. DOXYCYCLINE- ANTIBIOTIC FOR PNEUMONIA GABAPENTIN- TO PREVENT ALCOHOL WITHDRAWAL, DO NOT TAKE IF YOU ARE CONSUMING ALCOHOL MUCINEX- TO HELP WITH YOUR COUGH FLONASE- FOR NASAL CONGESTION CONTINUE INCENTIVE SPIROMETRY AT HOME. TAKE A PROBIOTIC DAILY FOR AT LEAST 2 WEEKS. INCREASE PROTONIX TO TWICE A DAY FOR POSSIBLE GASTRITIS. ALWAYS TAKE PROTONIX AT LEAST 30 MINUTES BEFORE BREAKFAST AND DINNER. ALWAYS TAKE ASPIRIN WITH A FULL STOMACH. HIGHLY ENCOURAGED TO STOP OR MINIMIZE ALCOHOL INTAKE. CALL PRIMARY CARE PHYSICIAN OR RETURN TO THE ER IMMEDIATELY IF WITH RECURRENCE OR WORSENING OF SYMPTOMS, COUGH, SHORTNESS OF BREATH, SPUTUM PRODUCTION, FEVER/CHILLS, ABDOMINAL PAIN, NAUSEA/VOMITING, BLACK OR RED STOOLS. FOLLOW UP WITH PRIMARY CARE PROVIDER MONALISA HILL ON SATURDAY OCTOBER 19, 2019 11:00 AM, AT [facility]. FOLLOW UP WITH TRIM SETTER DR. GUZMAN IN 2 WEEKS. PLEASE CALL HIS OFFICE TO SCHEDULE AN APPOINTMENT. CONTACT INFORMATION NOTED ABOVE. Pending Studies at Discharge: No Stand-Alone Forms: My [facility], Smoking Cessation Medications and DC Order Prescriptions: New (DME) Hospital Bed [facility] See Rx Instructions .ROUTE .MEDSUPPLY Qty: 1 RF: 0 doxycycline hyclate 100 mg Capsule 100 mg PO BID Qty: 10 RF: 0 gabapentin 100 mg Capsule 200 mg PO Q24H Qty: 1 RF: 0 fluticasone propionate 50 mcg/actuation [place],Suspension 2 spray NA DAILY 5 Days Qty: 1 RF: 0 guaifenesin [Mucinex] 600 mg Tablet Extended Release 12hr 600 mg PO Q12 Qty: 14 RF: 0 Continued multivitamin Tablet 1 tab PO DAILY RF: 0 atorvastatin 80 mg tablet 80 mg PO HS RF: 0 folic acid 400 mcg Tablet 0.4 mg PO DAILY RF: 0 aspirin [Aspir-81] 81 mg Tablet,Delayed Release (Dr/Ec) 81 mg PO DAILY RF: 0 trazodone 150 mg tablet 150 mg PO HS RF: 0 levothyroxine 125 mcg tablet 125 mcg PO DAILYBB RF: 0 metoprolol succinate 25 mg tablet extended release 24 hr 25 mg PO BID RF: 0 sertraline 50 mg tablet 50 mg PO HS RF: 0 psyllium husk [Metamucil] 0.4 gram Capsule 0.4 g PO DAILY RF: 0 pyridoxine (vitamin B6) [Vitamin B-6] 100 mg Tablet 100 mg PO DAILY RF: 0 Changed pantoprazole 40 mg tablet,delayed release (DR/EC) 40 mg PO BID Qty: 60 RF: 1 Discharge Orders: Discharge Order (Routine); Ordered 10/14/19 Ordered By: Markos Espana Admission Data Admit Date/Time: 10/12/19 10:06 Attending Provider: Markos Espana Admit Provider: Markos Espana Primary Care Provider: Thong Shah Other Providers: Aldo Bhandari ; Markos Espana Other Interventions: Discharge Summary Assessment (RN) Last Done: 10/14/19 12:18
[2019-10-15] MEDS ORDERED: GABAPENTIN 100 MG CAP PO SCH (13:45)
== END 2019-10-14 12:58 | disposition home or self-care (01) | DRG 195 ==
LOC: ED 07:10 → 2W 13:56